=== PATIENT | female | born 2000 | race Caucasian/White ===

== ENCOUNTER 2021-06-20 21:43 | Emergency (ER) | payer OTHER, SELFPAY ==
--- NOTE | ~2021-06-20 | CT_ITS ---
EXAMINATION: CT ABDOMEN AND PELVIS WITHOUT CONTRAST CLINICAL INFORMATION: Abdominal pain and vomiting COMPARISON: None TECHNIQUE: Multidetector volumetric imaging was performed from the superior aspect of the liver through the pubic symphysis. Sagittal and coronal reformatted images were obtained on the technologist's workstation. This CT examination was performed using dose optimization techniques as appropriate, variously including the following: *Automated exposure control *Adjustment of mA and/or kV according to patient size (this includes techniques or standardized protocols for targeted exams where dose is matched to indication/reason for exam; i.e. extremities or head) *Use of iterative reconstruction technique DLP: 617 mGy-cm FINDINGS: LUNG BASES: The visualized lung bases are unremarkable. LIVER, GALLBLADDER, AND BILIARY TREE: The liver is normal in size and shape with decreased attenuation. No focal hepatic lesion or biliary ductal dilatation is present. The gallbladder is unremarkable with no evidence of radiopaque gallstones, gallbladder wall thickening, or obvious pericholecystic inflammatory changes. PANCREAS: Unremarkable. SPLEEN: Unremarkable. ADRENAL GLANDS: Unremarkable. KIDNEYS AND URETERS: The kidneys are normal in size, shape, and attenuation. No hydronephrosis, hydroureter, or calculi seen. No perinephric stranding. BLADDER: Unremarkable. GASTROINTESTINAL TRACT: The stomach is decompressed. Normal caliber small bowel. No obstruction. Normal appendix. No colonic wall thickening or inflammatory change. Fecalization of the distal ileum noted suggesting slow transit. No free air or free fluid. ABDOMINAL WALL: No significant hernia is appreciated. LYMPH NODES: Normal. VASCULAR: Normal caliber aorta. Retroaortic left renal vein. PELVIC VISCERA: The uterus and adnexa are unremarkable. OSSEOUS STRUCTURES: No acute or suspicious osseous abnormality. CT/CT abdomen pelvis wo con IMPRESSION: No acute finding in the abdomen or pelvis. No inflammatory changes. No obstruction. Hepatic steatosis.
[2021-06-20 21:46] VITALS: BP 127/79; PULSE 109; RESP 18; TEMP 36.6; O2SAT 98; BMI 35.9
--- NOTE | 2021-06-20 22:28 | ED.ABDPAIN ---
HPI - Abdominal Pain General Chief Complaint: Abdominal Pain Stated Complaint: Abd pain Time Seen by Provider: 06/20/21 22:20 Source: patient Mode of arrival: ambulatory Limitations: no limitations History of Present Illness HPI narrative: 19-year-old female with a history of scoliosis presents to the ER with 3 days of left-sided abdominal pain in addition to increased back pain. She reports her back pain has been present for several years although in the last few weeks she noticed that her entire back is more sore than usual. She has a posterior headache and upper back tenseness with increased stress at home. She reports her lower back is also hurting and she thinks is due to her worsening scoliosis. She denies any new trauma. She has no urinary symptoms. She also reports constant abdominal pain that is mostly on the left side but is described as dull, generalized and worsening over the last 3 days. She vomited once this morning. She has had no fever or diarrhea. No constipation. Her diet has been poor. No pelvic pain or vaginal discharge. Denies chance of . MD elicited complaint: abdominal pain Pertinent past history: none Onset (ago): day(s) (3) Pain Consistency: constant Location: diffuse and LUQ Severity: moderate Pain scale (0-10): 6 Quality: aching and dull Radiation: none Migration to: no migration Exacerbating factors: nothing Relieving factors: nothing Associated symptoms: vomiting (X1) Related Data Patient : No Previous Rx's Medication Instructions Recorded cyclobenzaprine 5 mg tablet 5 mg PO TID PRN #10 tab 06/21/21 Allergies Allergy/AdvReac Type Severity Reaction Status Date / Time aspirin [ASA] Allergy Mild RASH Unverified 04/24/20 19:03 Penicillins [PENICILLINS] Allergy Unknown RASH Unverified 04/24/20 19:03 Review of Systems Review of Systems Constitutional: No Fever, No Chills ENT/Mouth: No sore throat, No Rhinorrhea, No Swallowing Difficulty Cardiovascular: No Chest Pain, No SOB Respiratory: No Cough, No Sputum, No Wheezing, No dyspnea Gastrointestinal: No Nausea, + Vomiting, No Diarrhea, + abdominal Pain Genitourinary: No Dysuria, No Urinary Frequency, No Hematuria Musculoskeletal: + joint pain, + Myalgias Skin: No Skin Lesions, No rash Neuro: No Weakness, No Numbness, No Dizziness, + Headache Psych: + Anxiety/Panic, No Depression Heme/Lymph: No Bruising, No Lymphadenopathy Physical Exam Vital Signs: Vital Signs: Last Vital Signs Temp 98 F 06/20/21 21:46 Pulse 109 H 06/20/21 21:46 Resp 18 06/20/21 21:46 BP 127/79 06/20/21 21:46 Pulse Ox 98 06/20/21 21:46 Body Mass Index 35.9 Appearance: Alert. Oriented X3. No acute distress. Lying on the stretcher comfortably. Eyes: Pupils equal, round and reactive to light. ENT: Pharynx normal. Neck: Normal inspection. Neck supple. CVS: Normal heart rate and rhythm. Pulses normal. Respiratory: No respiratory distress. Breath sounds normal. Abdomen: Soft with mild left upper quadrant and left lower quadrant tenderness, no rebound or guarding. No CVA tenderness. Normal +BS x4 Back: No significant scoliosis appreciated. Soft tissue tenderness of the paravertebral spinal muscles with palpable spasm. Upper trapezius also in spasm with tenderness Skin: Skin warm and dry. Normal skin color. Normal skin turgor. No rashes. Extremities: No lower extremity edema. Neuro: Oriented X 3. No motor deficit. No sensory deficit. Course Course Course Narrative: 20-year-old female with a history of scoliosis presenting to the ER with 3 days of worsening left-sided and diffuse abdominal pain with 1 episode of vomiting this morning along with diffuse back pains. Back pain has been going on for years but acutely worse in the last few days. No fever or chills. She is nontoxic appearing with normal vital signs. Will plan to start with basic lab workup in urinalysis, urine . Will reassess Reevaluation(s) Reevaluation #1: Lab workup showing mildly elevated ALT of 39 with alkaline phosphatase of 138. Bilirubins are normal. Beta hCG is negative. CBC is unremarkable. Will proceed with CT scan of the abdomen for further evaluation give her ongoing symptoms. Reevaluation #2: CT scan is unremarkable. UA is negative for infection. At this time etiology of her abdominal pain is unclear. She appears in no distress and is tolerating p.o.. She is stable for discharge home with plan to follow up with her primary care doctor. As for her back pain with the acute worsening and spasm on exam will plan to start a short trial of low-dose muscle relaxer to see if this will help. Also advised take Tylenol and Motrin. She will follow-up with her doctor for further evaluation and management. Stable for DC home. MDM - Abdominal Pain Lab Data Result diagrams: 06/20/21 22:31 06/20/21 22:31 Labs: Lab Results 06/20/21 06/20/21 06/21/21 Range/Units 22:31 22:31 00:32 WBC 10.5 (4.8-10.8) X10*3/uL RBC 4.64 (4.20-5.50) X10*6/uL Hgb 12.2 (12.0-16.0) g/dl Hct 38.7 (37.0-47.0) % MCV 83.4 (80.0-98.0) fL MCH 26.3 L (27.0-33.0) pg MCHC 31.5 (31.0-35.0) g/dl RDW 14.5 (11.0-16.0) % Plt Count 432 H (160-400) X10*3/uL MPV 9.3 L (9.4-12.3) fL Immature Gran % (Auto) 0.3 (0.0-0.4) % Neut % (Auto) 61.9 (45-73) % Lymph % (Auto) 23.8 (20-40) % [place] % (Auto) 10.5 (2-11) % Eos % (Auto) 3.0 (0-4) % Baso % (Auto) 0.5 (0-2) % Lymph # (Auto) 2.5 (1.2-4.9) X10*3/uL [place] # (Auto) 1.1 (0.1-1.2) X10*3/uL Eos # (Auto) 0.3 (0.0-0.4) X10*3/uL Baso # (Auto) 0.1 (0.0-0.2) X10*3/uL Abs Immat Gran (auto) 0.03 (0.00-0.03) X10*3/uL Absolute Neuts (auto) 6.5 (2.0-8.3) x10*3/uL Absolute Nucleated RBC 0.000 (0.0-0.012) X10*3/uL Nucleated RBC % (auto) 0.0 (0.0-0.2) /100WBC Sodium 141 (135-145) mmol/L Potassium 4.5 (3.3-5.1) mmol/L Chloride 104 (96-108) mmol/L Carbon Dioxide 30 H (22-29) mmol/L Anion Gap 12 (12-20) BUN 14 (9-16) mg/dL Creatinine 0.76 (0.5-1.4) mg/dL Estim Creat Clear Calc 116.7 Estimated GFR > 60 Random Glucose 97 (60-115) mg/dL Calcium 9.1 (8.4-10.2) mg/dL Magnesium 2.1 (1.6-2.6) mg/dL Total Bilirubin 0.2 (0.0-1.0) mg/dL Direct Bilirubin < 0.2 (0.0-0.5) mg/dL AST 25 (5-31) U/L ALT 39 H (0-31) U/L Alkaline Phosphatase 138 H (39-117) U/L Total Protein 7.1 (6.5-8.0) g/dL Albumin 4.2 (3.5-5.0) g/dL Lipase 22 (8-78) U/L Beta HCG, Quant < 2 mIU/mL Urine Color YELLOW Urine Appearance CLEAR Urine pH 7.5 (5.0-8.0) Ur Specific [place] 1.020 (1.005-1.025) Urine Protein NEG (NEG-TRACE) MG/DL Urine Glucose (UA) NEG (NEG) MG/DL Urine Ketones NEG (NEG) MG/DL Urine Blood NEG (NEG) Urine Nitrite NEG (NEG) Ur Leukocyte Esterase NEG (NEG) Urine Test (NEGATIVE) 06/21/21 Range/Units 00:32 WBC (4.8-10.8) X10*3/uL RBC (4.20-5.50) X10*6/uL Hgb (12.0-16.0) g/dl Hct (37.0-47.0) % MCV (80.0-98.0) fL MCH (27.0-33.0) pg MCHC (31.0-35.0) g/dl RDW (11.0-16.0) % Plt Count (160-400) X10*3/uL MPV (9.4-12.3) fL Immature Gran % (Auto) (0.0-0.4) % Neut % (Auto) (45-73) % Lymph % (Auto) (20-40) % [place] % (Auto) (2-11) % Eos % (Auto) (0-4) % Baso % (Auto) (0-2) % Lymph # (Auto) (1.2-4.9) X10*3/uL [place] # (Auto) (0.1-1.2) X10*3/uL Eos # (Auto) (0.0-0.4) X10*3/uL Baso # (Auto) (0.0-0.2) X10*3/uL Abs Immat Gran (auto) (0.00-0.03) X10*3/uL Absolute Neuts (auto) (2.0-8.3) x10*3/uL Absolute Nucleated RBC (0.0-0.012) X10*3/uL Nucleated RBC % (auto) (0.0-0.2) /100WBC Sodium (135-145) mmol/L Potassium (3.3-5.1) mmol/L Chloride (96-108) mmol/L Carbon Dioxide (22-29) mmol/L Anion Gap (12-20) BUN (9-16) mg/dL Creatinine (0.5-1.4) mg/dL Estim Creat Clear Calc Estimated GFR Random Glucose (60-115) mg/dL Calcium (8.4-10.2) mg/dL Magnesium (1.6-2.6) mg/dL Total Bilirubin (0.0-1.0) mg/dL Direct Bilirubin (0.0-0.5) mg/dL AST (5-31) U/L ALT (0-31) U/L Alkaline Phosphatase (39-117) U/L Total Protein (6.5-8.0) g/dL Albumin (3.5-5.0) g/dL Lipase (8-78) U/L Beta HCG, Quant mIU/mL Urine Color Urine Appearance Urine pH (5.0-8.0) Ur Specific [place] (1.005-1.025) Urine Protein (NEG-TRACE) MG/DL Urine Glucose (UA) (NEG) MG/DL Urine Ketones (NEG) MG/DL Urine Blood (NEG) Urine Nitrite (NEG) Ur Leukocyte Esterase (NEG) Urine Test NEGATIVE (NEGATIVE) Critical Care Time Critical Care Time Critical Care Time: No Discharge Plan Discharge Clinical Impression: Abdominal pain Qualifiers: Abdominal location: generalized Qualified Code(s): R10.84 - Generalized abdominal pain Back pain Qualifiers: Back pain location: low back pain Chronicity: unspecified Back pain laterality: bilateral Sciatica presence: without sciatica Qualified Code(s): M54.50 - Low back pain, unspecified Patient Disposition: Home, Self-Care Instructions: Abdominal Pain (ED), Back Pain (ED) Additional Instructions: Your workup today was unremarkable. Your CT scan did not show any acute findings. Your urine test was normal. Recommend a bland diet while urine not feeling well and having abdominal pain. Your back pain is most likely due to muscle strain and spasm. No bending, lifting or twisting. Use ice several times per day for 20 minutes at a time for the next 48 hours and then change to heat. Take medication as prescribed to help with pain and discomfort. Follow up with your Primary Care Doctor this week. If you develop new or worsening symptoms call 911 or come back to the ER for further evaluation. Prescriptions: New cyclobenzaprine 5 mg tablet 5 mg PO TID PRN (Reason: muscle spasm) Qty: 10 RF: 0 PMFSH Social History Social History Advance Directives: No Advance Directives Information Provided: No Patient : No
[2021-06-20 22:35] LABS: MANUAL DIFF FLAG NO
[2021-06-20 22:36] LABS: Basophils Absolute Auto 0.1 X10*3/uL (0.0-0.2); Basophils Percent Auto 0.5 % (0-2); Eosinophils Absolute Auto 0.3 X10*3/uL (0.0-0.4); Hematocrit 38.7 % (37.0-47.0); Hemoglobin 12.2 g/dl (12.0-16.0); Imm Gran Abs Auto 0.03 X10*3/uL (0.00-0.03); Imm Gran Pct Auto 0.3 % (0.0-0.4); Lymphocytes Absolute Auto 2.5 X10*3/uL (1.2-4.9); Lymphocytes Percent Auto 23.8 % (20-40); Mean Corpuscular HGB Conc 31.5 g/dl (31.0-35.0); Mean Corpuscular Hemoglobin 26.3 pg (27.0-33.0); Mean Corpuscular Volume 83.4 fL (80.0-98.0); Mean Platelet Volume 9.3 fL (9.4-12.3); Monocytes Absolute Auto 1.1 X10*3/uL (0.1-1.2); Monocytes Percent Auto 10.5 % (2-11); Neutrophils Absolute Auto 6.5 x10*3/uL (2.0-8.3); Neutrophils Percent Auto 61.9 % (45-73); Platelet Count 432 X10*3/uL (160-400); Red Blood Count 4.64 X10*6/uL (4.20-5.50); Red Cell Distribution Width 14.5 % (11.0-16.0); White Blood Count 10.5 X10*3/uL (4.8-10.8)
[2021-06-20 23:00] LABS: Alanine Aminotransferase 39 U/L (0-31); Albumin Level 4.2 g/dL (3.5-5.0); Alkaline Phosphatase 138 U/L (39-117); Anion Gap 12 (12-20); Aspartate Amino Transferase 25 U/L (5-31); Bilirubin Direct < 0.2 mg/dL (0.0-0.5); Bilirubin Total 0.2 mg/dL (0.0-1.0); Blood Urea Nitrogen 14 mg/dL (9-16); Calcium 9.1 mg/dL (8.4-10.2); Carbon Dioxide 30 mmol/L (22-29); Chloride 104 mmol/L (96-108); Creatinine Clr Calc Pharmacy 116.7; Estimated Glomerular Filt Rate > 60; Glucose Random 97 mg/dL (60-115); Lipase 22 U/L (8-78); Magnesium 2.1 mg/dL (1.6-2.6); Potassium 4.5 mmol/L (3.3-5.1); Sodium 141 mmol/L (135-145); Total Protein 7.1 g/dL (6.5-8.0)
[2021-06-20 23:48] LABS: HCG Quantitative < 2 mIU/mL
[2021-06-21 00:41] LABS: Appearance Urine CLEAR; Color Urine YELLOW; Glucose Urine UA NEG (NEG); Leukocyte Esterase Urine NEG (NEG); Nitrite Urine NEG (NEG); PH 7.5 (5.0-8.0); Urine Blood NEG (NEG); Urine Ketones NEG (NEG); Urine Protein NEG (NEG-TRACE)
[2021-06-21 00:46] LABS: UPreg QC Valid YES; Urine Pregnancy NEGATIVE (NEGATIVE)
== END 2021-06-21 01:12 | disposition home or self-care (01) ==
PROVIDERS: Physician Assistant; Emergency Provider Internal Medicine
DX: R10.12 Left upper quadrant pain (principal); M54.50 Low back pain, unspecified; Z79.899 Other long term (current) drug therapy
CPT/HCPCS: 36415; 74176; 80048; 80076; 81003; 81025; 83690; 83735; 84702; 85025; 99283; 99284

== ENCOUNTER 2021-09-26 18:13 | Emergency (ER) | payer MEDICAID, SELFPAY ==
--- NOTE | ~2021-09-26 | CT_ITS ---
EXAMINATION: CT abdomen pelvis w con CLINICAL INFORMATION: Reason for Exam Left sided AP COMPARISON: Prior CT June 2021 TECHNIQUE: Multidetector volumetric imaging was performed from the superior aspect of the liver through the pubic symphysis 85 mL Omnipaque 350 injected Sagittal and coronal reformatted images were obtained on the technologist's workstation. This CT examination was performed using dose optimization techniques as appropriate, variously including the following: *Automated exposure control *Adjustment of mA and/or kV according to patient size (this includes techniques or standardized protocols for targeted exams where dose is matched to indication/reason for exam; i.e. extremities or head) *Use of iterative reconstruction technique DLP: 911 mGy-cm FINDINGS: LOWER THORAX: Included lung bases are clear. HEPATOBILIARY: Diffusely hypodense liver suggesting hepatic steatosis. No focal hepatic lesions. No biliary ductal dilatation. GALLBLADDER: Gallbladder unremarkable. SPLEEN: Spleen is normal in size. PANCREAS: No focal mass or ductal dilatation. STOMACH AND GASTROINTESTINAL TRACT: Stomach is grossly unremarkable. There is no bowel distention or thickening. No CT evidence of appendicitis. ADRENALS: No adrenal nodules. KIDNEYS/URETERS: No hydronephrosis, stones or solid mass lesions. URINARY BLADDER: Partially decompressed. PELVIC VISCERA: Unremarkable PERITONEUM: No free air or fluid. LYMPH NODES: No lymphadenopathy. VASCULAR:Abdominal aorta normal in size, no aneurysm found. BONES, ABDOMINAL WALL AND SOFT TISSUES: Age-appropriate changes of the spine and skeletal system, no destructive osteolytic or osteosclerotic bone lesion found CT/CT abdomen pelvis w con IMPRESSION: *No CT explanation for patient's pain symptoms. No evidence of diverticulitis. No evidence of bowel obstruction. No kidney stone or hydronephrosis. *Normal appendix identified. Mildly hypodense liver suggesting hepatic steatosis.
[2021-09-26 18:28] VITALS: BP 131/83; PULSE 94; RESP 16; TEMP 36.1; O2SAT 100; BMI 35.9
--- NOTE | 2021-09-26 18:49 | ED.ABDPAIN ---
HPI - Abdominal Pain General Chief Complaint: Abdominal Pain Stated Complaint: abdominal pain, back pain Time Seen by Provider: 09/26/21 18:41 Source: patient Mode of arrival: ambulatory Limitations: no limitations History of Present Illness HPI narrative: 20-year-old female previously healthy here with reports of left-sided abdominal pain which began yesterday after drinking some water. No associated nausea, vomiting, diarrhea, urinary symptoms, fevers or chills. Related Data Previous Rx's Medication Instructions Recorded cyclobenzaprine 5 mg tablet 5 mg PO TID PRN #10 tab 06/21/21 omeprazole 40 mg capsule,delayed 40 mg PO DAILY #30 cap 09/26/21 release Allergies Allergy/AdvReac Type Severity Reaction Status Date / Time aspirin [ASA] Allergy Mild RASH Verified 09/26/21 20:56 Penicillins [PENICILLINS] Allergy Unknown RASH Verified 09/26/21 20:56 Review of Systems Review of Systems Yes all other systems are reviewed and are negative Constitutional: Reports no additional constitutional complaints, Denies body ache(s), Denies chills, Denies fever(s), Denies headache(s) and Denies weakness Eyes: Reports no additional eye complaints and Denies change in vision Reports system reviewed and no additional complaints, except as documented, Denies dizziness, Denies headache(s), Denies nasal congestion, Denies nasal discharge and Denies neck pain Cardiovascular: Reports no additional cardiovascular complaints, Denies chest pain, Denies leg edema and Denies dyspnea Respiratory: Reports no additional respiratory complaints, Denies cough and Denies dyspnea Gastrointestinal: Reports no additional gastrointestinal complaints, Reports abdominal pain, Denies diarrhea, Denies nausea and Denies vomiting Genitourinary: Reports no additional female genitourinary complaints and Denies urinary incontinence Musculoskeletal: Reports no additional musculoskeletal complaints, Denies back pain, Denies arthralgias, Denies joint swelling, Denies neck pain, Denies numbness and Denies tingling Skin/Breast: Reports system reviewed and no additional complaints, except as docu and Denies rash Reports system reviewed and no additional complaints, except as documented, Denies dizziness, Denies headache(s), Denies numbness, Denies tingling and Denies weakness PMF Past Medical History Attestation statement: The following information was validated with the patient. Source: old records reviewed and nursing notes reviewed Social History Social History Patient Tobacco Use Status: Never used Tobacco Use of substances other than those prescribed or required for medical reasons: Yes Substance Use Type: Marijuana Advance Directives: No Patient : No Physical Exam ED Vital Signs: Vital Signs - 24 hr 09/26/21 18:28 09/26/21 19:03 Temperature 97.0 F 98.8 F Pulse Rate 94 89 Respiratory Rate 16 16 Blood Pressure 131/83 122/76 Pulse Oximetry 100 99 BMI result Body Mass Index 35.9 Const General: cooperative, healthy appearing, comfortable and no acute distress Orientation/consciousness: patient oriented x3 Limitations: no limitations HENMT Head: Yes normal to inspection Ears: hearing grossly normal bilaterally and TM's normal bilaterally General nose exam: Normal external nose present Face and sinus: Yes normal facial exam Mouth: Normal oral and palatal mucosa present Throat: Yes posterior oropharynx normal, Yes tonsils normal and Yes uvula midline Eyes General: appearance normal, both eyes and all related structures Pupils: Equal, round and reactive pupils present Neck Neck: Yes normal visual inspection, Yes full ROM, Yes no lymphadenopathy and Yes no meningeal signs Chest Chest palpation & inspection: normal inspection of the chest Resp Effort & Inspection: normal respiratory effort Auscultation: clear to auscultation bilaterally Cardio Rate: regular rate Peripheral pulses: Peripheral pulses 2+ throughout GI Inspection: Yes normal to inspection Palpation (GI): Soft to palpation and Tenderness to palpation present (GI) (Left upper quadrant-no rebound or guarding ) Auscultation: normal bowel sounds General: Yes no CVA tenderness Back/Spine/Pelvis Back: no CVA tenderness Skin General skin exam: no rashes or lesions noted Neuro General: patient oriented x3 and no meningeal signs Cranial nerves: Yes CN's II-XII intact bilaterally, Yes Equal, round and reactive pupils present, Yes Bilaterally intact EOM present, Yes Nystagmus not present, Yes Normal facial strength present and Yes Midline tongue present Cognition (Neuro): normal cognition Gait exam (Neuro): Normal gait present Motor exam (neuro): 5/5 motor strength present throughout Course Course Course Narrative: 20-year-old female here with reports of left upper quadrant abdominal pain since yesterday. On exam has tenderness over the left upper abdomen. No rebound or guarding. Will check labs, UA, CT A/P. 2100-labs unremarkable. UA is negative. CT abdomen pelvis shows no acute finding. Patient reports improvement after PPI and GI cocktail. ?gastritis vs reflux vs GERD. Patient tolerating p.o.. Will recommend patient follow-up with GI outpatient. Will initiate PPI. Reviewed worrisome signs and symptoms of when to return to the emergency department. Comfortable discharge. MDM - Abdominal Pain Medical Records Attestation: I reviewed the patient's medical records. Lab Data Attestation: I reviewed the patient's lab results. Result diagrams: 09/26/21 19:09 09/26/21 19:09 Labs: Lab Results 09/26/21 09/26/21 09/26/21 Range/Units 19:09 19:09 19:09 WBC 11.7 H (4.8-10.8) X10*3/uL RBC 4.63 (4.20-5.50) X10*6/uL Hgb 12.2 (12.0-16.0) g/dl Hct 38.7 (37.0-47.0) % MCV 83.6 (80.0-98.0) fL MCH 26.3 L (27.0-33.0) pg MCHC 31.5 (31.0-35.0) g/dl RDW 14.6 (11.0-16.0) % Plt Count 412 H (160-400) X10*3/uL MPV 9.3 L (9.4-12.3) fL Immature Gran % (Auto) 0.3 (0.0-0.4) % Neut % (Auto) 64.1 (45-73) % Lymph % (Auto) 22.3 (20-40) % [place] % (Auto) 9.9 (2-11) % Eos % (Auto) 2.9 (0-4) % Baso % (Auto) 0.5 (0-2) % Lymph # (Auto) 2.6 (1.2-4.9) X10*3/uL [place] # (Auto) 1.2 (0.1-1.2) X10*3/uL Eos # (Auto) 0.3 (0.0-0.4) X10*3/uL Baso # (Auto) 0.1 (0.0-0.2) X10*3/uL Abs Immat Gran (auto) 0.04 H (0.00-0.03) X10*3/uL Absolute Neuts (auto) 7.5 (2.0-8.3) x10*3/uL Absolute Nucleated RBC 0.000 (0.0-0.012) X10*3/uL Nucleated RBC % (auto) 0.0 (0.0-0.2) /100WBC Sodium 139 (135-145) mmol/L Potassium 4.5 (3.3-5.1) mmol/L Chloride 105 (96-108) mmol/L Carbon Dioxide 28 (22-29) mmol/L Anion Gap 11 L (12-20) BUN 11 (9-16) mg/dL Creatinine 0.72 (0.5-1.4) mg/dL Estim Creat Clear Calc 123.2 Estimated GFR > 60 Random Glucose 98 (60-115) mg/dL Calcium 9.5 (8.4-10.2) mg/dL Total Bilirubin 0.2 (0.0-1.0) mg/dL Direct Bilirubin < 0.2 (0.0-0.5) mg/dL AST 17 (5-31) U/L ALT 23 (0-31) U/L Alkaline Phosphatase 142 H (39-117) U/L Total Protein 7.0 (6.5-8.0) g/dL Albumin 4.0 (3.5-5.0) g/dL Lipase 25 (8-78) U/L Urine Color YELLOW Urine Appearance CLEAR Urine pH 6.0 (5.0-8.0) Ur Specific [place] 1.010 (1.005-1.025) Urine Protein NEG (NEG-TRACE) MG/DL Urine Glucose (UA) NEG (NEG) MG/DL Urine Ketones NEG (NEG) MG/DL Urine Blood NEG (NEG) Urine Nitrite NEG (NEG) Ur Leukocyte Esterase NEG (NEG) Urine Test (NEGATIVE) 09/26/21 Range/Units 19:09 WBC (4.8-10.8) X10*3/uL RBC (4.20-5.50) X10*6/uL Hgb (12.0-16.0) g/dl Hct (37.0-47.0) % MCV (80.0-98.0) fL MCH (27.0-33.0) pg MCHC (31.0-35.0) g/dl RDW (11.0-16.0) % Plt Count (160-400) X10*3/uL MPV (9.4-12.3) fL Immature Gran % (Auto) (0.0-0.4) % Neut % (Auto) (45-73) % Lymph % (Auto) (20-40) % [place] % (Auto) (2-11) % Eos % (Auto) (0-4) % Baso % (Auto) (0-2) % Lymph # (Auto) (1.2-4.9) X10*3/uL [place] # (Auto) (0.1-1.2) X10*3/uL Eos # (Auto) (0.0-0.4) X10*3/uL Baso # (Auto) (0.0-0.2) X10*3/uL Abs Immat Gran (auto) (0.00-0.03) X10*3/uL Absolute Neuts (auto) (2.0-8.3) x10*3/uL Absolute Nucleated RBC (0.0-0.012) X10*3/uL Nucleated RBC % (auto) (0.0-0.2) /100WBC Sodium (135-145) mmol/L Potassium (3.3-5.1) mmol/L Chloride (96-108) mmol/L Carbon Dioxide (22-29) mmol/L Anion Gap (12-20) BUN (9-16) mg/dL Creatinine (0.5-1.4) mg/dL Estim Creat Clear Calc Estimated GFR Random Glucose (60-115) mg/dL Calcium (8.4-10.2) mg/dL Total Bilirubin (0.0-1.0) mg/dL Direct Bilirubin (0.0-0.5) mg/dL AST (5-31) U/L ALT (0-31) U/L Alkaline Phosphatase (39-117) U/L Total Protein (6.5-8.0) g/dL Albumin (3.5-5.0) g/dL Lipase (8-78) U/L Urine Color Urine Appearance Urine pH (5.0-8.0) Ur Specific [place] (1.005-1.025) Urine Protein (NEG-TRACE) MG/DL Urine Glucose (UA) (NEG) MG/DL Urine Ketones (NEG) MG/DL Urine Blood (NEG) Urine Nitrite (NEG) Ur Leukocyte Esterase (NEG) Urine Test NEGATIVE (NEGATIVE) Imaging Data CT scan - abdomen: Attestation: I personally reviewed and interpreted this imaging study as follows: Radiologist's impression: [address] [address] [address] Scan Report Signed Patient: Lucina Isabel MR#: [id number] : 2000 Acct:[id number] Age/Sex: 20 / F ADM Date: 09/26/21 Loc: HO.ED Attending Dr: Ordering Physician: Naatlee Alcantar NP Date of Service: 09/26/21 Procedure(s): CT abdomen pelvis w con Accession Number(s): [id number] cc: Natalee Alcantar NP~ EXAMINATION: CT abdomen pelvis w con CLINICAL INFORMATION: Reason for Exam Left sided AP COMPARISON: Prior CT June 2021 TECHNIQUE: Multidetector volumetric imaging was performed from the superior aspect of the liver through the pubic symphysis 85 mL Omnipaque 350 injected Sagittal and coronal reformatted images were obtained on the technologist's workstation. ? This CT examination was performed using dose optimization techniques as appropriate, variously including the following: *Automated exposure control *Adjustment of mA and/or kV according to patient size (this includes techniques or standardized protocols for targeted exams where dose is matched to indication/reason for exam; i.e. extremities or head) *Use of iterative reconstruction technique DLP: 911 mGy-cm FINDINGS: LOWER THORAX: Included lung bases are clear. HEPATOBILIARY: Diffusely hypodense liver suggesting hepatic steatosis. No focal hepatic lesions. No biliary ductal dilatation.? GALLBLADDER: Gallbladder unremarkable. SPLEEN: Spleen is normal in size. PANCREAS: No focal mass or ductal dilatation. STOMACH AND GASTROINTESTINAL TRACT: Stomach is grossly unremarkable. There is no bowel distention or thickening. No CT evidence of appendicitis. ADRENALS: No adrenal nodules. KIDNEYS/URETERS: No hydronephrosis, stones or solid mass lesions. URINARY BLADDER: Partially decompressed. PELVIC VISCERA: Unremarkable PERITONEUM: No free air or fluid. LYMPH NODES: No lymphadenopathy. VASCULAR:Abdominal aorta normal in size, no aneurysm found. BONES, ABDOMINAL WALL AND SOFT TISSUES: Age-appropriate changes of the spine and skeletal system, no destructive osteolytic or osteosclerotic bone lesion found CT/CT abdomen pelvis w con IMPRESSION: *No CT explanation for patient's pain symptoms. No evidence of diverticulitis. No evidence of bowel obstruction. No kidney stone or hydronephrosis. ? *Normal appendix identified. ? Mildly hypodense liver suggesting hepatic steatosis. Discharge Plan Discharge Clinical Impression: Abdominal pain Patient Disposition: Home, Self-Care Instructions: Abdominal Pain (ED) Additional Instructions: Follow a bland diet for the next several days Follow-up with Gastroenterology Prescriptions: New omeprazole 40 mg capsule,delayed release(DR/EC) 40 mg PO DAILY Qty: 30 0RF No Action cyclobenzaprine 5 mg tablet 5 mg PO TID PRN (Reason: muscle spasm) Qty: 10 0RF Referrals: Brandon Escalante MD [Physician] - 1 week
[2021-09-26 19:03] VITALS: BP 122/76; PULSE 89; RESP 16; TEMP 37.1; O2SAT 99
[2021-09-26 19:14] LABS: MANUAL DIFF FLAG NO
[2021-09-26 19:17] LABS: Basophils Absolute Auto 0.1 X10*3/uL (0.0-0.2); Basophils Percent Auto 0.5 % (0-2); Eosinophils Absolute Auto 0.3 X10*3/uL (0.0-0.4); Eosinophils Percent Auto 2.9 % (0-4); Hematocrit 38.7 % (37.0-47.0); Hemoglobin 12.2 g/dl (12.0-16.0); Imm Gran Abs Auto 0.04 X10*3/uL (0.00-0.03); Imm Gran Pct Auto 0.3 % (0.0-0.4); Lymphocytes Absolute Auto 2.6 X10*3/uL (1.2-4.9); Lymphocytes Percent Auto 22.3 % (20-40); Mean Corpuscular HGB Conc 31.5 g/dl (31.0-35.0); Mean Corpuscular Hemoglobin 26.3 pg (27.0-33.0); Mean Corpuscular Volume 83.6 fL (80.0-98.0); Mean Platelet Volume 9.3 fL (9.4-12.3); Monocytes Absolute Auto 1.2 X10*3/uL (0.1-1.2); Monocytes Percent Auto 9.9 % (2-11); Neutrophils Absolute Auto 7.5 x10*3/uL (2.0-8.3); Neutrophils Percent Auto 64.1 % (45-73); Platelet Count 412 X10*3/uL (160-400); Red Blood Count 4.63 X10*6/uL (4.20-5.50); Red Cell Distribution Width 14.6 % (11.0-16.0); White Blood Count 11.7 X10*3/uL (4.8-10.8)
[2021-09-26 19:18] LABS: Appearance Urine CLEAR; Color Urine YELLOW; Glucose Urine UA NEG (NEG); Leukocyte Esterase Urine NEG (NEG); Nitrite Urine NEG (NEG); Urine Blood NEG (NEG); Urine Ketones NEG (NEG); Urine Protein NEG (NEG-TRACE)
[2021-09-26 19:20] LABS: UPreg QC Valid YES; Urine Pregnancy NEGATIVE (NEGATIVE)
[2021-09-26 19:31] LABS: Alanine Aminotransferase 23 U/L (0-31); Alkaline Phosphatase 142 U/L (39-117); Anion Gap 11 (12-20); Aspartate Amino Transferase 17 U/L (5-31); Bilirubin Direct < 0.2 mg/dL (0.0-0.5); Bilirubin Total 0.2 mg/dL (0.0-1.0); Blood Urea Nitrogen 11 mg/dL (9-16); Calcium 9.5 mg/dL (8.4-10.2); Carbon Dioxide 28 mmol/L (22-29); Chloride 105 mmol/L (96-108); Creatinine Clr Calc Pharmacy 123.2; Estimated Glomerular Filt Rate > 60; Glucose Random 98 mg/dL (60-115); Lipase 25 U/L (8-78); Potassium 4.5 mmol/L (3.3-5.1); Sodium 139 mmol/L (135-145)
[2021-09-26] MEDS: Magnesium Hydrox/Alum Hydrox 30 ML ORAL.SUSP PO (19:37)
[2021-09-26] MEDS: Famotidine/PF 20 MG/2 ML VIAL IVPUSH (19:37)
[2021-09-26] MEDS: Lidocaine HCl Viscous 2 % 15 ML SOLUTION MUCOUS MEM (19:37)
[2021-09-26] MEDS: iohexoL 350 MG/ML 100 ML INFUS..BTL IV (19:49)
[2021-09-26] MEDS: Acetaminophen 325 MG TABLET 975 MG PO (21:05)
== END 2021-09-26 21:11 | disposition home or self-care (01) ==
PROVIDERS: Nurse Practitioner Family; Emergency Provider Internal Medicine
DX: R10.12 Left upper quadrant pain (principal); F12.90 Cannabis use, unspecified, uncomplicated
CPT/HCPCS: 36415; 74177; 80048; 80076; 81003; 81025; 83690; 85025; 96374; 99284; 99285; Q9967

== ENCOUNTER 2021-10-07 02:44 | Emergency (ER) | payer MEDICAID, SELFPAY ==
[2021-10-07 02:57] VITALS: BP 134/63; PULSE 125; RESP 18; TEMP 37; O2SAT 97; BMI 35.6
[2021-10-07 03:14] LABS: MANUAL DIFF FLAG NO
[2021-10-07 03:18] LABS: Basophils Percent Auto 0.3 % (0-2); Eosinophils Absolute Auto 0.1 X10*3/uL (0.0-0.4); Eosinophils Percent Auto 0.7 % (0-4); Hematocrit 41.4 % (37.0-47.0); Imm Gran Abs Auto 0.05 X10*3/uL (0.00-0.03); Imm Gran Pct Auto 0.3 % (0.0-0.4); Lymphocytes Absolute Auto 0.8 X10*3/uL (1.2-4.9); Lymphocytes Percent Auto 5.2 % (20-40); Mean Corpuscular HGB Conc 31.4 g/dl (31.0-35.0); Mean Corpuscular Hemoglobin 26.3 pg (27.0-33.0); Mean Corpuscular Volume 83.6 fL (80.0-98.0); Mean Platelet Volume 9.1 fL (9.4-12.3); Monocytes Absolute Auto 0.8 X10*3/uL (0.1-1.2); Monocytes Percent Auto 5.1 % (2-11); Neutrophils Absolute Auto 13.9 x10*3/uL (2.0-8.3); Neutrophils Percent Auto 88.4 % (45-73); Platelet Count 435 X10*3/uL (160-400); Red Blood Count 4.95 X10*6/uL (4.20-5.50); Red Cell Distribution Width 14.5 % (11.0-16.0); White Blood Count 15.7 X10*3/uL (4.8-10.8)
[2021-10-07 03:27] LABS: Appearance Urine TURBID; Color Urine YELLOW; Glucose Urine UA NEG (NEG); Leukocyte Esterase Urine TRACE (NEG); Nitrite Urine POS (NEG); PH 7.5 (5.0-8.0); Specific Gravity - Urine 1.025 (1.005-1.025); UACC Culture Trigger YES; Urine Blood 3+ (NEG); Urine Ketones NEG (NEG); Urine Protein 2+ MG/DL (NEG-TRACE)
[2021-10-07 03:29] LABS: UPreg QC Valid YES; Urine Pregnancy NEGATIVE (NEGATIVE)
[2021-10-07 03:33] LABS: Anion Gap 16 (12-20); Blood Urea Nitrogen 15 mg/dL (9-16); Calcium 9.4 mg/dL (8.4-10.2); Carbon Dioxide 26 mmol/L (22-29); Chloride 104 mmol/L (96-108); Estimated Glomerular Filt Rate > 60; Glucose Random 132 mg/dL (60-115); Potassium 4.6 mmol/L (3.3-5.1); Sodium 141 mmol/L (135-145)
[2021-10-07 03:41] LABS: Bacteria Urine 2+ /LPF; Mucus Urine 3+ /LPF; Renal Epithelial Cells Urine 2+ /LPF; Squamous Epithelial Cell Urine 3+ /LPF
--- NOTE | 2021-10-07 04:02 | ED_ITS ---
HPI - Abdominal Pain General Chief Complaint: Abdominal Pain Stated Complaint: stomach & back pain, vomiting Time Seen by Provider: 10/07/21 04:02 Source: patient Mode of arrival: ambulatory Limitations: no limitations History of Present Illness HPI narrative: Patient been having diffuse abdominal pain radiating to the left lower back with diarrhea and nausea and vomiting since yesterday multiple times no urinary complaint no fever no chills patient has not received the COVID vaccine Related Data Previous Rx's Medication Instructions Recorded cyclobenzaprine 5 mg tablet 5 mg PO TID PRN #10 tab 06/21/21 omeprazole 40 mg capsule,delayed 40 mg PO DAILY #30 cap 09/26/21 release ciprofloxacin HCl 500 mg tablet 500 mg PO BID #14 tab 10/07/21 (Cipro) ondansetron 4 mg disintegrating 4 mg PO Q6-8H PRN #7 tab 10/07/21 tablet Allergies Allergy/AdvReac Type Severity Reaction Status Date / Time aspirin [ASA] Allergy Mild RASH Verified 09/26/21 20:56 Penicillins [PENICILLINS] Allergy Unknown RASH Verified 09/26/21 20:56 Review of Systems Review of Systems Yes all other systems are reviewed and are negative [facility] Social History Social History Patient Tobacco Use Status: Never used Tobacco Substance Use Type: Marijuana Advance Directives: No Patient : No Physical Exam ED Vital Signs: Vital Signs - 24 hr 10/07/21 02:57 10/07/21 06:07 Temperature 98.6 F 98.1 F Pulse Rate 125 H 111 H Respiratory Rate 18 Blood Pressure 134/63 113/67 Pulse Oximetry 97 98 BMI result Body Mass Index 35.6 Appearance: Alert. Oriented X3. No acute distress. Eyes: No pallor/ icterus ENT: Pharynx normal. Oral Mucosa moist Neck: Normal inspection. Neck supple. CVS: Normal heart rate and rhythm. Pulses normal. Respiratory: No respiratory distress. Equal air entry bilateral, no wheezing/r ales/rhonchi Abdomen: Soft diffuse abdominal tenderness. Bowel sounds are present, no mass palpable, no CVA tenderness Skin: Skin warm and dry. Normal skin color. Normal skin turgor. Extremities: No lower extremity edema. No calf tenderness Neuro: Oriented X 3. MDM - Abdominal Pain MDM Narrative Medical decision making narrative: Patient with diarrhea nausea vomiting slight pressure when she urinates but no frequency or dysuria her son is also sick with same likely viral improved after IV fluids noticed to have slightly elevated WBC count was given 1 g of Rocephin discharged patient home on Ceftin and nausea medicine Lab Data Attestation: I reviewed the patient's lab results. Result diagrams: 10/07/21 03:10 10/07/21 03:10 Labs: Lab Results 10/07/21 10/07/21 10/07/21 Range/Units 03:10 03:10 03:18 WBC 15.7 H (4.8-10.8) X10*3/uL RBC 4.95 (4.20-5.50) X10*6/uL Hgb 13.0 (12.0-16.0) g/dl Hct 41.4 (37.0-47.0) % MCV 83.6 (80.0-98.0) fL MCH 26.3 L (27.0-33.0) pg MCHC 31.4 (31.0-35.0) g/dl RDW 14.5 (11.0-16.0) % Plt Count 435 H (160-400) X10*3/uL MPV 9.1 L (9.4-12.3) fL Immature Gran % (Auto) 0.3 (0.0-0.4) % Neut % (Auto) 88.4 H (45-73) % Lymph % (Auto) 5.2 L (20-40) % [place] % (Auto) 5.1 (2-11) % Eos % (Auto) 0.7 (0-4) % Baso % (Auto) 0.3 (0-2) % Lymph # (Auto) 0.8 L (1.2-4.9) X10*3/uL [place] # (Auto) 0.8 (0.1-1.2) X10*3/uL Eos # (Auto) 0.1 (0.0-0.4) X10*3/uL Baso # (Auto) 0.0 (0.0-0.2) X10*3/uL Abs Immat Gran (auto) 0.05 H (0.00-0.03) X10*3/uL Absolute Neuts (auto) 13.9 H (2.0-8.3) x10*3/uL Absolute Nucleated RBC 0.000 (0.0-0.012) X10*3/uL Nucleated RBC % (auto) 0.0 (0.0-0.2) /100WBC Sodium 141 (135-145) mmol/L Potassium 4.6 (3.3-5.1) mmol/L Chloride 104 (96-108) mmol/L Carbon Dioxide 26 (22-29) mmol/L Anion Gap 16 (12-20) BUN 15 (9-16) mg/dL Creatinine 0.79 (0.5-1.4) mg/dL Estim Creat Clear Calc 111.0 Estimated GFR > 60 Random Glucose 132 H (60-115) mg/dL Calcium 9.4 (8.4-10.2) mg/dL Total Bilirubin 0.5 (0.0-1.0) mg/dL Direct Bilirubin 0.2 (0.0-0.5) mg/dL AST 25 D (5-31) U/L ALT 40 H (0-31) U/L Alkaline Phosphatase 143 H (39-117) U/L Total Protein 7.5 (6.5-8.0) g/dL Albumin 4.3 (3.5-5.0) g/dL Lipase 15 (8-78) U/L Urine Color YELLOW Urine Appearance TURBID Urine pH 7.5 (5.0-8.0) Ur Specific [place] 1.025 (1.005-1.025) Urine Protein 2+ H (NEG-TRACE) MG/DL Urine Glucose (UA) NEG (NEG) MG/DL Urine Ketones NEG (NEG) MG/DL Urine Blood 3+ H (NEG) Urine Nitrite POS H (NEG) Ur Leukocyte Esterase TRACE H (NEG) Urine RBC 15-29 H (0) /HPF Urine WBC 5-9 H (0-4) /HPF Ur Squamous Epith Cells 3+ /LPF Ur Renal Epithelial Cell 2+ /LPF Urine Bacteria 2+ /LPF Urine Mucus 3+ /LPF Urine Test (NEGATIVE) 10/07/21 Range/Units 03:18 WBC (4.8-10.8) X10*3/uL RBC (4.20-5.50) X10*6/uL Hgb (12.0-16.0) g/dl Hct (37.0-47.0) % MCV (80.0-98.0) fL MCH (27.0-33.0) pg MCHC (31.0-35.0) g/dl RDW (11.0-16.0) % Plt Count (160-400) X10*3/uL MPV (9.4-12.3) fL Immature Gran % (Auto) (0.0-0.4) % Neut % (Auto) (45-73) % Lymph % (Auto) (20-40) % [place] % (Auto) (2-11) % Eos % (Auto) (0-4) % Baso % (Auto) (0-2) % Lymph # (Auto) (1.2-4.9) X10*3/uL [place] # (Auto) (0.1-1.2) X10*3/uL Eos # (Auto) (0.0-0.4) X10*3/uL Baso # (Auto) (0.0-0.2) X10*3/uL Abs Immat Gran (auto) (0.00-0.03) X10*3/uL Absolute Neuts (auto) (2.0-8.3) x10*3/uL Absolute Nucleated RBC (0.0-0.012) X10*3/uL Nucleated RBC % (auto) (0.0-0.2) /100WBC Sodium (135-145) mmol/L Potassium (3.3-5.1) mmol/L Chloride (96-108) mmol/L Carbon Dioxide (22-29) mmol/L Anion Gap (12-20) BUN (9-16) mg/dL Creatinine (0.5-1.4) mg/dL Estim Creat Clear Calc Estimated GFR Random Glucose (60-115) mg/dL Calcium (8.4-10.2) mg/dL Total Bilirubin (0.0-1.0) mg/dL Direct Bilirubin (0.0-0.5) mg/dL AST (5-31) U/L ALT (0-31) U/L Alkaline Phosphatase (39-117) U/L Total Protein (6.5-8.0) g/dL Albumin (3.5-5.0) g/dL Lipase (8-78) U/L Urine Color Urine Appearance Urine pH (5.0-8.0) Ur Specific [place] (1.005-1.025) Urine Protein (NEG-TRACE) MG/DL Urine Glucose (UA) (NEG) MG/DL Urine Ketones (NEG) MG/DL Urine Blood (NEG) Urine Nitrite (NEG) Ur Leukocyte Esterase (NEG) Urine RBC (0) /HPF Urine WBC (0-4) /HPF Ur Squamous Epith Cells /LPF Ur Renal Epithelial Cell /LPF Urine Bacteria /LPF Urine Mucus /LPF Urine Test NEGATIVE (NEGATIVE) Discharge Plan Discharge Clinical Impression: Gastroenteritis, UTI (urinary tract infection) Patient Disposition: Home, Self-Care Instructions: Urinary Tract Infection in Women (DC), Gastroenteritis (ED) Additional Instructions: Drink plenty of fluids Antibiotic has prescribed Nausea medication as advised Follow with PCP if not better Prescriptions: New ondansetron 4 mg tablet,disintegrating 4 mg PO Q6-8H PRN (Reason: nausea and vomiting) Qty: 7 0RF ciprofloxacin HCl [Cipro] 500 mg tablet 500 mg PO BID Qty: 14 0RF No Action omeprazole 40 mg capsule,delayed release(DR/EC) 40 mg PO DAILY Qty: 30 0RF cyclobenzaprine 5 mg tablet 5 mg PO TID PRN (Reason: muscle spasm) Qty: 10 0RF Interventions: ED Discharge Assessment Last Done: 10/07/21 06:36 Discharge Date/Time: 10/07/21 06:36
[2021-10-07 04:29] LABS: Alanine Aminotransferase 40 U/L (0-31); Albumin Level 4.3 g/dL (3.5-5.0); Alkaline Phosphatase 143 U/L (39-117); Aspartate Amino Transferase 25 U/L (5-31); Bilirubin Direct 0.2 mg/dL (0.0-0.5); Bilirubin Total 0.5 mg/dL (0.0-1.0); Lipase 15 U/L (8-78); Total Protein 7.5 g/dL (6.5-8.0)
[2021-10-07] MEDS: ondansetron HCL 4 MG/2 ML VIAL IVPUSH ×2 (04:29→06:02)
[2021-10-07] MEDS: Loperamide HCl 2 MG CAPSULE 4 MG PO (04:29)
[2021-10-07] MEDS: 0.9 % Sodium Chloride 1,000 ML 999 ML IV (04:30)
--- NOTE | 2021-10-07 04:42 | PC.NURSE ---
Iv placed, medicated per mar. Pt is resting at this time.
[2021-10-07] MEDS: Dicyclomine HCl 10 MG CAPSULE 20 MG PO (06:03)
[2021-10-07] MEDS: cefTRIAXone sodium 1 GM in 0.9 % Sodium Chloride 50 ML IV (06:04)
[2021-10-07 06:07] VITALS: BP 113/67; PULSE 111; TEMP 36.7; O2SAT 98
--- NOTE | 2021-10-07 06:12 | PC.NURSE ---
pt oob to bathroom with a steady gait. pt voicing she still had discomfort. Provider notified. Medicated per Oct. Plan is to discharge pt home after Iv antibiotic.
== END 2021-10-07 06:36 | disposition home or self-care (01) ==
PROVIDERS: Emergency Provider Internal Medicine
DX: N39.0 Urinary tract infection, site not specified (principal); K52.9 Noninfective gastroenteritis and colitis, unspecified; R10.9 Unspecified abdominal pain; F12.90 Cannabis use, unspecified, uncomplicated
CPT/HCPCS: 36415; 80048; 80076; 81001; 81025; 83690; 85025; 87086; 87088; 87186; 96361; 96365; 96374; 96376; 99284; 99285; J0696; J2405

== ENCOUNTER 2021-11-08 12:52 | Emergency (ER) | payer OTHER, SELFPAY ==
[2021-11-08 13:21] VITALS: BP 133/86; PULSE 103; RESP 18; TEMP 36.1; O2SAT 99; BMI 35.6
--- NOTE | 2021-11-08 16:10 | ED.FEMALEGU ---
HPI - Female Genitourinary General Chief complaint: Urogenital-Female Stated complaint: lower abd pain Time Seen by Provider: 11/08/21 15:58 Source: patient Mode of arrival: ambulatory Limitations: no limitations History of Present Illness HPI Narrative: 21-year-old female here with 3 days of pelvic discomfort with white thick vaginal discharge. No urinary symptoms, fevers, chills, back pain, vomiting. Patient is sexually active with 1 male partner. She does not use condoms. She is not on contraception. She did due to home test this week 1 which was negative 1 which was positive. Her last menstrual cycle was October 30 Related Data Previous Rx's Medication Instructions Recorded cyclobenzaprine 5 mg tablet 5 mg PO TID PRN #10 tab 06/21/21 omeprazole 40 mg capsule,delayed 40 mg PO DAILY #30 cap 09/26/21 release ciprofloxacin HCl 500 mg tablet 500 mg PO BID #14 tab 10/07/21 (Cipro) ondansetron 4 mg disintegrating 4 mg PO Q6-8H PRN #7 tab 10/07/21 tablet doxycycline monohydrate 100 mg 100 mg PO BID #28 tab 11/08/21 tablet metronidazole 500 mg tablet 500 mg PO Q12H 14 Days #28 tab 11/08/21 Allergies Allergy/AdvReac Type Severity Reaction Status Date / Time aspirin [ASA] Allergy Mild RASH Verified 11/08/21 13:25 Penicillins [PENICILLINS] Allergy Unknown RASH Verified 11/08/21 13:25 Review of Systems Review of Systems: Yes all other systems are reviewed and are negative Constitutional: Constitutional: Reports no additional constitutional complaints, Denies body ache(s), Denies chills, Denies fever(s), Denies headache(s) and Denies weakness Eyes: Eyes: Reports no additional eye complaints and Denies change in vision ENT: Reports system reviewed and no additional complaints, except as documented, Denies dizziness, Denies headache(s), Denies nasal congestion, Denies nasal discharge and Denies neck pain Cardiovascular: Cardiovascular: Reports no additional cardiovascular complaints, Denies chest pain, Denies leg edema and Denies dyspnea Respiratory: Respiratory: Reports no additional respiratory complaints, Denies cough and Denies dyspnea Gastrointestinal: Gastrointestinal: Reports no additional gastrointestinal complaints, Denies abdominal pain, Denies diarrhea, Denies nausea and Denies vomiting Genitourinary: Genitourinary: Reports no additional female genitourinary complaints, Denies difficulty voiding, Denies dysuria, Reports pelvic pain, Denies flank pain, Denies urinary incontinence, Denies urinary hesitancy, Denies urinary urgency, Reports vaginal discharge, Denies vaginal dryness, Denies vaginal odor and Denies vaginal pruritus Musculoskeletal: Musculoskeletal: Reports no additional musculoskeletal complaints, Denies back pain, Denies arthralgias, Denies joint swelling, Denies neck pain, Denies numbness and Denies tingling Integumentary/Breasts: Skin/Breast: Reports system reviewed and no additional complaints, except as docu and Denies rash Neurologic: Reports system reviewed and no additional complaints, except as documented, Denies Abnormal speech present, Denies dizziness, Denies headache(s), Denies numbness, Denies tingling and Denies weakness PMFSH Past Medical History Attestation statement: The following information was validated with the patient. Source: old records reviewed and nursing notes reviewed Social History Social History Patient Tobacco Use Status: Never used Tobacco Substance Use Type: Marijuana Advance Directives: No Advance Directives Information Provided: Yes Physical Exam Vital Signs: Vital Signs: Last Vital Signs Temp 96.9 F 11/08/21 13:21 Pulse 103 H 11/08/21 13:21 Resp 18 11/08/21 13:21 BP 133/86 11/08/21 13:21 Pulse Ox 99 11/08/21 13:21 BMI result Body Mass Index 35.6 Const: General: cooperative, healthy appearing, comfortable and no acute distress Orientation/consciousness: patient oriented x3 Limitations: no limitations HEENT: Head: Yes normal to inspection Ears: hearing grossly normal bilaterally General nose exam: Normal external nose present Face and sinus: Yes normal facial exam Mouth: Normal oral and palatal mucosa present Throat: Yes posterior oropharynx normal Eyes: General: appearance normal, both eyes and all related structures Pupils: Equal, round and reactive pupils present Neck: Neck: Yes normal visual inspection Chest: Chest palpation & inspection: normal inspection of the chest Resp: Effort & Inspection: normal respiratory effort Auscultation: clear to auscultation bilaterally Cardio: Rate: regular rate Rhythm: regular rhythm Peripheral pulses: Peripheral pulses 2+ throughout GI: Inspection: Yes normal to inspection Palpation (GI): Soft to palpation and nontender Auscultation: normal bowel sounds : Other: Offset Plate Maker (Marichuy PRIETO) External Female Exam: normal external appearance Speculum Exam - Vagina: normal appearance of the vagina and other (mucousy white discharge ) Speculum Exam - Cervix: normal appearance of the cervix Bimanual exam- vagina & uterus: cervical motion tenderness Bimanual Exam- Adnexa, other: normal adnexae and no tenderness Back/Spine/Pelvis: Thoracic/Lumbar Spine: thoracic and lumbar spine normal to inspection Skin: General skin exam: no rashes or lesions noted Neuro: General: patient oriented x3, no focal motor deficits and normal sensation to monofilament Cranial nerves: Yes Equal, round and reactive pupils present Cognition (Neuro): normal cognition Speech: No Abnormal speech present Gait exam (Neuro): Normal gait present Motor exam (neuro): 5/5 motor strength present throughout Extrem: General: Yes normal to inspection Course Course Course Narrative: 21 yo female here with pelvic discomfort and vaginal discharge x 3 days. Will need pelvic exam with testing for CT NG, BV. UA and urine . 1650-UA and urine is negative. STI testing is pending patient treated prophylactically as she has cervical motion tenderness on exam. Patient given ceftriaxone 500 mg IM x1. Will send home with Flagyl and doxycycline for presumed PID. Reviewed worrisome signs and symptoms of when to return to the emergency department. Comfortable discharge home. MDM - Female Genitourinary Differential Diagnosis Differential diagnosis: Likely urinary tract infection, bacterial vaginosis, trichomoniasis, cervicitis and vaginitis Medical Records Attestation: I reviewed the patient's medical records. Lab Data Attestation: I reviewed the patient's lab results. Labs: Lab Results 11/08/21 11/08/21 Range/Units 16:17 16:18 Urine Color YELLOW Urine Appearance HAZY Urine pH 7.0 (5.0-8.0) Ur Specific [place] 1.020 (1.005-1.025) Urine Protein NEG (NEG-TRACE) MG/DL Urine Glucose (UA) NEG (NEG) MG/DL Urine Ketones NEG (NEG) MG/DL Urine Blood NEG (NEG) Urine Nitrite NEG (NEG) Ur Leukocyte Esterase NEG (NEG) Urine Test NEGATIVE (NEGATIVE) Discharge Plan Discharge Clinical Impression: Acute pelvic inflammatory disease (PID) Patient Disposition: Home, Self-Care Instructions: Pelvic Inflammatory Disease (DC) Additional Instructions: Your urine and urinalysis was negative. We sent testing for STDs and vaginal infections. Will not have these results back for a few days. Therefore we are treating you prophylactically for both with antibiotic Return for fever, vomiting Take the medications with food. You cannot drink alcohol with Flagyl it will make you vomit No sex until you know your STD results are. If you are positive you must abstain from unprotected sex for 7 days Prescriptions: New doxycycline monohydrate 100 mg tablet 100 mg PO BID Qty: 28 0RF metronidazole 500 mg tablet 500 mg PO Q12H 14 Days Qty: 28 0RF No Action omeprazole 40 mg capsule,delayed release(DR/EC) 40 mg PO DAILY Qty: 30 0RF cyclobenzaprine 5 mg tablet 5 mg PO TID PRN (Reason: muscle spasm) Qty: 10 0RF ondansetron 4 mg tablet,disintegrating 4 mg PO Q6-8H PRN (Reason: nausea and vomiting) Qty: 7 0RF ciprofloxacin HCl [Cipro] 500 mg tablet 500 mg PO BID Qty: 14 0RF Referrals: Jackson Patricio PA-C [Primary Care Provider] - 1 week (for persistent symptoms ) Stand Alone Forms: Work/School Release Interventions: ED Discharge Assessment Last Done: 11/08/21 17:19 Discharge Date/Time: 11/08/21 17:21
[2021-11-08 16:31] LABS: Appearance Urine HAZY; Color Urine YELLOW; Glucose Urine UA NEG (NEG); Leukocyte Esterase Urine NEG (NEG); Nitrite Urine NEG (NEG); Urine Blood NEG (NEG); Urine Ketones NEG (NEG); Urine Protein NEG (NEG-TRACE)
[2021-11-08 16:33] LABS: UPreg QC Valid YES; Urine Pregnancy NEGATIVE (NEGATIVE)
[2021-11-08] MEDS: cefTRIAXone sodium 500 MG, Lidocaine HCl 1 % MPF 1 ML IM (17:14)
[2021-11-08] MEDS: Lidocaine HCl 1 % MPF 5 ML VIAL SUBCUT (17:15)
[2021-11-09 01:03] LABS: CT PCR NOT DETECTED (Not Detect.); NG PCR NOT DETECTED (Not Detect.)
[2021-11-09 10:01] LABS: BV Int Neg Control Negative (Negative); BV Int Pos Control Positive (Positive)
== END 2021-11-08 17:21 | disposition home or self-care (01) ==
PROVIDERS: Emergency Medicine; Nurse Practitioner Family; Emergency Provider Emergency Medicine Emergency Medical Services; PCP Physician Assistant
DX: N73.9 Female pelvic inflammatory disease, unspecified (principal); R10.2 Pelvic and perineal pain; N89.8 Other specified noninflammatory disorders of vagina; Z79.899 Other long term (current) drug therapy
CPT/HCPCS: 81003; 81025; 87480; 87491; 87510; 87591; 87660; 96365; 96366; 99283; 99284; J0696

== ENCOUNTER 2021-11-25 11:06 | Emergency (ER) | payer OTHER, SELFPAY ==
--- NOTE | ~2021-11-25 | US_ITS ---
EXAMINATION: US ABDOMEN COMPLETE CLINICAL INFORMATION: Upper abdominal pain. COMPARISON: Previous CT of the abdomen and pelvis most recent September 2021 TECHNIQUE: Real-time imaging of the abdominal viscera. FINDINGS: PANCREAS: Normal. ABDOMINAL AORTA: The proximal, mid, and distal segments are normal in caliber. INFERIOR VENA CAVA: Visualized portions are normal. LIVER: Liver echotexture is increased suggestive of fatty infiltration. Liver is upper normal in size. The liver contour is normal. There are areas of focal fatty sparing. No other focal hepatic lesion. There is no intrahepatic biliary duct dilatation seen. GALLBLADDER: Normal. The gallbladder is physiologically distended without evidence of stones, sludge, polyps, wall thickening or pericholecystic fluid. COMMON BILE DUCT: Normal in caliber measuring 0.5 cm in diameter. RIGHT KIDNEY: Normal. No hydronephrosis. No renal calculi or focal parenchymal lesions. The kidney measures 10.2 cm in maximum dimension. LEFT KIDNEY: Normal. No hydronephrosis. No renal calculi or focal parenchymal lesions. The kidney measures 11 cm in maximum dimension. SPLEEN: Normal. The spleen measures 9 cm in maximum dimension. FREE FLUID: None. US/US abdomen complete IMPRESSION: Fatty liver. Otherwise unremarkable exam.
--- NOTE | ~2021-11-25 | XR_ITS ---
EXAMINATION: XR CHEST CLINICAL INFORMATION: Cough productive of sputum. COMPARISON: 10/09/2017 and 08/13/2019 TECHNIQUE: 2 views of the chest were obtained. FINDINGS: No focal pneumonia. No effusion or pneumothorax. 2 of the 3 views obtained at low lung volumes which results in crowding. Stable heart and mediastinum. Straightening of the left heart border typically within normal limits in this demographic. No mass or adenopathy. No edema. Normal gas pattern. Stable mild idiopathic scoliosis. XR/XR chest 2V IMPRESSION: No acute cardiopulmonary process detected.
[2021-11-25 11:56] VITALS: BP 117/77; PULSE 104; RESP 17; TEMP 36.4; O2SAT 98; BMI 35.6
[2021-11-25 12:42] LABS: IDNOW Serial# 08D9AD1C
[2021-11-25 12:43] LABS: Strep A Nucleic Acid Negative (Negative)
[2021-11-25 12:47] LABS: MANUAL DIFF FLAG NO
--- NOTE | 2021-11-25 12:47 | ED_ITS ---
HPI - General Adult General Chief complaint: Upper Respiratory Symptoms <TARA Juares Last Filed: 11/25/21 15:31> Stated complaint: cough sore throat nausea vomiting <TARA Juares Last Filed: 11/25/21 15:31> Time Seen by Provider: 11/25/21 11:43 <TARA Juares Last Filed: 11/25/21 15:31> Source: patient and family <TARA Juares Last Filed: 11/25/21 15:31> Mode of arrival: ambulatory <TARA Juares Last Filed: 11/25/21 15:31> Limitations: no limitations <TARA Juares Last Filed: 11/25/21 15:31> History of Present Illness HPI narrative: 21-year-old female presenting to the ED with multiple complaints which include intermittent abdominal pains in the epigastric abdominal area over the past few weeks worse after eating she reports with associated nausea vomiting Her 2nd complaint is body aches, a sore throat and a cough with clear/yellow color sputum production for the past few days worse today. She reports that her significant other tested positive for the flu over the weekend. She denies any measured fevers, dizziness, headaches, neck pain/stiffness, trouble swallowing or breathing, chest pain or shortness of breath, dyspnea on exertion, orthopnea, back pain, dysuria, hematuria, abnormal vaginal discharge, rashes, recent travel or any other symptoms complaints or concerns at this time. Reports she has had a in the past although still has her gallbladder and her appendix. <Ca TARA Lilly Last Filed: 11/25/21 15:31> Related Data Home medications: Previous Rx's Medication Instructions Recorded cyclobenzaprine 5 mg tablet 5 mg PO TID PRN #10 tab 06/21/21 omeprazole 40 mg capsule,delayed 40 mg PO DAILY #30 cap 09/26/21 release ciprofloxacin HCl 500 mg tablet 500 mg PO BID #14 tab 10/07/21 (Cipro) ondansetron 4 mg disintegrating 4 mg PO Q6-8H PRN #7 tab 10/07/21 tablet doxycycline monohydrate 100 mg 100 mg PO BID #28 tab 11/08/21 tablet metronidazole 500 mg tablet 500 mg PO Q12H 14 Days #28 tab 11/08/21 nitrofurantoin 100 mg PO BID 7 Days #14 cap 11/25/21 monohydrate/macrocrystals 100 mg capsule (Macrobid) oseltamivir 75 mg capsule (Tamiflu) 75 mg PO BID 5 Days #10 cap 11/25/21 <TARA Juares - Last Filed: 11/25/21 15:31> Allergies/adverse reactions: Allergies Allergy/AdvReac Type Severity Reaction Status Date / Time aspirin [ASA] Allergy Mild RASH Verified 11/08/21 13:25 Penicillins [PENICILLINS] Allergy Unknown RASH Verified 11/08/21 13:25 <TAAR Juares Last Filed: 11/25/21 15:31> Review of Systems Review of Systems: Constitutional : + chills/fatigue/malaise, No Weight loss, No Fever, No Night Sweats ENT/Mouth : + Sore Throat, No Hearing loss, No Ear Pain, No Nasal Congestion, No Sinus Pain, No Hoarseness, No Rhinorrhea, No Swallowing Difficulty Eyes: No Eye Pain, No Swelling, No Redness, No Foreign Body, No Discharge, No Vision Changes Cardiovascular : No Chest Pain, No SOB, No Dyspnea on Exertion, No Orthopnea, No Edema, No Palpitations Respiratory : + Cough, + Sputum, No Wheezing, No Smoke Exposure, No Dyspnea Gastrointestinal : Intermittent episodes of nausea/vomiting over the past 2 weeks none today, + epigastric abdominal pain, No Diarrhea, No Constipation, No Hematochezia, No Melena Genitourinary : no irregular bleeding, No Dysuria, No Urinary Frequency, No Hematuria, No Urinary Incontinence, No Urgency, No Flank Pain, No Urinary Flow Changes, No Hesitancy Musculoskeletal : No joint pain, + Myalgias, No Joint Swelling Skin : No Skin Lesions, No rash Neuro : No Weakness, No Numbness, No Paresthesias, No Loss of Consciousness, No Dizziness, No Headache Psych : No Anxiety/Panic, No Depression, No SI/HI/AH/VH, No Social Issues, Heme/Lymph: No Bruising, No Bleeding,No Lymphadenopathy Endocrine : No Polyuria, No Polydipsia, No Temperature Intolerance <TARA Juares Last Filed: 11/25/21 15:31> Yes all other systems are reviewed and are negative <TARA Juares Last Filed: 11/25/21 15:31> [facility] Past Medical History Attestation statement: The following information was validated with the patient. <TARA Juares - Last Filed: 11/25/21 15:31> Social History Social History: Social History Patient Tobacco Use Status: Never used Tobacco Substance Use Type: Marijuana Advance Directives: No Advance Directives Information Provided: No Patient : No <TARA Juares - Last Filed: 11/25/21 15:31> Physical Exam ED Vital Signs: Vital Signs - 24 hr 11/25/21 11:56 Temperature 97.6 F Pulse Rate 104 H Respiratory Rate 17 Blood Pressure 117/77 Pulse Oximetry 98 BMI result Body Mass Index 35.6 Vital signs have been reviewed blood pressure 117/77. Pulse 104 mildly tachycardic. Respirations 17. Temperature 97.6 degrees orally. Oxygen sat uration 98% on room air. <TARA Juares - Last Filed: 11/25/21 15:31> Appearance: Alert. Oriented X3. No acute distress. Head: Normal external exam. Normocephalic. Eyes: PERRLA. EOMI. Conjunctiva and sclera normal. Eyelids normal. ENT: EAC WNL. TM WNL. Posterior Pharynx mildly erythemous no exudates noted. Uvula midline. Moist mucous membranes. No trismus noted. No drooling noted. No muffled voice noted. Normal Voice. Neck: Normal inspection. Neck supple. FROM. No adenopathy. No meningeal signs. CVS: Normal heart rate and rhythm. Heart sound normal. No murmurs noted. Pulses normal throughout. Respiratory: No respiratory distress. Painless inspiration. Breath sounds normal. No wheezes/rales/rhonchi noted. Chest nontender. No accessory muscle usage noted or decreased air movement noted. Abdomen: Soft and TTP of epigastric abd pain. Nondistended. No guarding. No rigidity. Bowel sounds normal in all 4 quadrants. No distention noted. No organomegaly noted. No visible injury noted. No rebound tenderness. Negative Rovsing sign. Negative obturator's sign. Negative psoas sign. Negative Ward sign. Back: No CVA tenderness. Full range of motion noted. Non tender. No rashes noted. Skin: Skin warm and dry. Normal skin color. Normal skin turgor. No rashes/lesions/lacerations noted. Extremities: Extremities exhibit normal range of motion. Extremities nontender. Neuro: Oriented X 3. No motor deficit. No sensory deficit. Reflexes normal. Normal steady gait. CN's II-XII intact bilaterally? Vascular: Distal pulses intact. No cyanosis noted. Normal capillary refill noted. <TARA Juares - Last Filed: 11/25/21 15:31> Course Course Course Narrative: 12:30pm - 21-year-old female presenting to the ED with multiple complaints which include intermittent abdominal pains in the epigastric abdominal area over the past few weeks worse after eating she reports with associated nausea vomiting Her 2nd complaint is body aches, a sore throat and a cough with clear/yellow color sputum production for the past few days worse today. She reports that her significant other tested positive for the flu over the weekend. Plan: Labs, chest x-ray, UA, UHCG, COVID swab, strep swab, influenza swab and an ultrasound then re-evaluate. <TARA Juares - Last Filed: 11/25/21 15:31> Reevaluation(s) Reevaluation #1: - labs returned and alkaline phosphate 130. Otherwise all other labs are within normal limits. UA revealed blood and a trace of leukocytes therefore will treat for UTI. Patient positive for influenza. Negative for COVID and strep. Chest x-ray within normal limits. Therefore at this time will DC home with antibiotics for UTI and Tamiflu for influenza a and instructions return if any new or worsening symptoms to follow up with primary care provider. Patient understands agrees with this plan. <TARA Juares - Last Filed: 11/25/21 15:31> Time: 15:24 <TARA Juares - Last Filed: 11/25/21 15:31> Medical Decision Making Medical Records Medical records reviewed: Yes I reviewed the patient's medical records. <TARA Juares Last Filed: 11/25/21 15:31> Lab Data Lab results reviewed: Yes I reviewed the patient's lab results. <TARA Juares Last Filed: 11/25/21 15:31> Result diagrams: : 11/25/21 12:43 11/25/21 12:43 <TARA Juares - Last Filed: 11/25/21 15:31> Labs: Lab Results 11/25/21 11/25/21 11/25/21 Range/Units 12:14 12:14 12:14 WBC (4.8-10.8) X10*3/uL RBC (4.20-5.50) X10*6/uL Hgb (12.0-16.0) g/dl Hct (37.0-47.0) % MCV (80.0-98.0) fL MCH (27.0-33.0) pg MCHC (31.0-35.0) g/dl RDW (11.0-16.0) % Plt Count (160-400) X10*3/uL MPV (9.4-12.3) fL Immature Gran % (Auto) (0.0-0.4) % Neut % (Auto) (45-73) % Lymph % (Auto) (20-40) % [place] % (Auto) (2-11) % Eos % (Auto) (0-4) % Baso % (Auto) (0-2) % Lymph # (Auto) (1.2-4.9) X10*3/uL [place] # (Auto) (0.1-1.2) X10*3/uL Eos # (Auto) (0.0-0.4) X10*3/uL Baso # (Auto) (0.0-0.2) X10*3/uL Abs Immat Gran (auto) (0.00-0.03) X10*3/uL Absolute Neuts (auto) (2.0-8.3) x10*3/uL Absolute Nucleated RBC (0.0-0.012) X10*3/uL Nucleated RBC % (auto) (0.0-0.2) /100WBC Sodium (135-145) mmol/L Potassium (3.3-5.1) mmol/L Chloride (96-108) mmol/L Carbon Dioxide (22-29) mmol/L Anion Gap (12-20) BUN (9-16) mg/dL Creatinine (0.5-1.4) mg/dL Estim Creat Clear Calc Estimated GFR Random Glucose (60-115) mg/dL Calcium (8.4-10.2) mg/dL Magnesium (1.6-2.6) mg/dL Total Bilirubin (0.0-1.0) mg/dL AST (5-31) U/L ALT (0-31) U/L Alkaline Phosphatase (39-117) U/L Total Protein (6.5-8.0) g/dL Albumin (3.5-5.0) g/dL Lipase (8-78) U/L Beta HCG, Quant mIU/mL Urine Color Urine Appearance Urine pH (5.0-8.0) Ur Specific [place] (1.005-1.025) Urine Protein (NEG-TRACE) MG/DL Urine Glucose (UA) (NEG) MG/DL Urine Ketones (NEG) MG/DL Urine Blood (NEG) Urine Nitrite (NEG) Ur Leukocyte Esterase (NEG) Urine RBC (0) /HPF Urine WBC (0-4) /HPF Ur Squamous Epith Cells /LPF Urine Bacteria /LPF Urine Mucus /LPF COVID-19 (KIKI) Negative (Negative) COVID-19 Clin Com See Note Influenza Type A (CHELSY) Positive A (Negative) Influenza Type B (CHELSY) Negative (Negative) Influenza A & B Note See Note S. pyogenes GrpA CHELSY Negative (Negative) 11/25/21 11/25/21 11/25/21 Range/Units 12:43 12:43 12:53 WBC 7.3 (4.8-10.8) X10*3/uL RBC 4.66 (4.20-5.50) X10*6/uL Hgb 12.1 (12.0-16.0) g/dl Hct 39.0 (37.0-47.0) % MCV 83.7 (80.0-98.0) fL MCH 26.0 L (27.0-33.0) pg MCHC 31.0 (31.0-35.0) g/dl RDW 14.0 (11.0-16.0) % Plt Count 396 (160-400) X10*3/uL MPV 9.2 L (9.4-12.3) fL Immature Gran % (Auto) 0.3 (0.0-0.4) % Neut % (Auto) 68.7 (45-73) % Lymph % (Auto) 16.0 L (20-40) % [place] % (Auto) 10.9 (2-11) % Eos % (Auto) 3.6 (0-4) % Baso % (Auto) 0.5 (0-2) % Lymph # (Auto) 1.2 (1.2-4.9) X10*3/uL [place] # (Auto) 0.8 (0.1-1.2) X10*3/uL Eos # (Auto) 0.3 (0.0-0.4) X10*3/uL Baso # (Auto) 0.0 (0.0-0.2) X10*3/uL Abs Immat Gran (auto) 0.02 (0.00-0.03) X10*3/uL Absolute Neuts (auto) 5.0 (2.0-8.3) x10*3/uL Absolute Nucleated RBC 0.000 (0.0-0.012) X10*3/uL Nucleated RBC % (auto) 0.0 (0.0-0.2) /100WBC Sodium 140 (135-145) mmol/L Potassium 3.6 D (3.3-5.1) mmol/L Chloride 104 (96-108) mmol/L Carbon Dioxide 27 (22-29) mmol/L Anion Gap 13 (12-20) BUN 13 (9-16) mg/dL Creatinine 0.73 (0.5-1.4) mg/dL Estim Creat Clear Calc 120.1 Estimated GFR > 60 Random Glucose 88 (60-115) mg/dL Calcium 9.2 (8.4-10.2) mg/dL Magnesium 1.9 (1.6-2.6) mg/dL Total Bilirubin < 0.2 (0.0-1.0) mg/dL AST 24 (5-31) U/L ALT 30 (0-31) U/L Alkaline Phosphatase 130 H (39-117) U/L Total Protein 7.1 (6.5-8.0) g/dL Albumin 4.1 (3.5-5.0) g/dL Lipase 16 (8-78) U/L Beta HCG, Quant < 2 mIU/mL Urine Color YELLOW Urine Appearance CLOUDY Urine pH 6.5 (5.0-8.0) Ur Specific [place] 1.025 (1.005-1.025) Urine Protein TRACE (NEG-TRACE) MG/DL Urine Glucose (UA) NEG (NEG) MG/DL Urine Ketones 5 (NEG) MG/DL Urine Blood 3+ H (NEG) Urine Nitrite NEG (NEG) Ur Leukocyte Esterase TRACE H (NEG) Urine RBC 0 (0) /HPF Urine WBC 0-2 (0-4) /HPF Ur Squamous Epith Cells 3+ /LPF Urine Bacteria 2+ /LPF Urine Mucus 2+ /LPF COVID-19 (KIKI) (Negative) COVID-19 Clin Com Influenza Type A (CHELSY) (Negative) Influenza Type B (CHELSY) (Negative) Influenza A & B Note S. pyogenes GrpA CHELSY (Negative) <TARA Juares - Last Filed: 11/25/21 15:31> Imaging Data Chest x-ray: Attestation: I personally reviewed and interpreted this imaging study as follows: <TARA Juares - Last Filed: 11/25/21 15:31> Radiologist's impression: FINDINGS: No focal pneumonia. No effusion or pneumothorax. 2 of the 3 views obtained at low lung volumes which results in crowding. Stable heart and mediastinum. Straightening of the left heart border typically within normal limits in this demographic. No mass or adenopathy. No edema. Normal gas pattern. Stable mild idiopathic scoliosis. XR/XR chest 2V IMPRESSION: No acute cardiopulmonary process detected. <TARA Juares - Last Filed: 11/25/21 15:31> Abdominal ultrasound: Attestation: I personally reviewed and interpreted this imaging study as follows: <TARA Juares Last Filed: 11/25/21 15:31> Radiologist's impression: FINDINGS: PANCREAS: Normal. ABDOMINAL AORTA: The proximal, mid, and distal segments are normal in caliber. INFERIOR VENA CAVA: Visualized portions are normal. LIVER: Liver echotexture is increased suggestive of fatty infiltration. Liver is upper normal in size. The liver contour is normal. There are areas of focal fatty sparing. No other focal hepatic lesion. There is no intrahepatic biliary duct dilatation seen. GALLBLADDER: Normal. The gallbladder is physiologically distended without evidence of stones, sludge, polyps, wall thickening or pericholecystic fluid. COMMON BILE DUCT: Normal in caliber measuring 0.5 cm in diameter. RIGHT KIDNEY: Normal. No hydronephrosis. No renal calculi or focal parenchymal lesions. The kidney measures 10.2 cm in maximum dimension. LEFT KIDNEY: Normal. No hydronephrosis. No renal calculi or focal parenchymal lesions. The kidney measures 11 cm in maximum dimension. SPLEEN: Normal. The spleen measures 9 cm in maximum dimension. FREE FLUID: None. US/US abdomen complete IMPRESSION: Fatty liver. Otherwise unremarkable exam. <TARA Juares Last Filed: 11/25/21 15:31> Discharge Plan Discharge Clinical Impression: Influenza, Fatty liver, UTI (urinary tract infection) <TARA Juares Last Filed: 11/25/21 15:31> Patient Disposition: Home, Self-Care <TARA Juares Last Filed: 11/25/21 15:31> Instructions: Urinary Tract Infection in Women (DC), Influenza (ED), Non-Alcoholic Fatty Liver Disease (ED) <TARA Juares Last Filed: 11/25/21 15:31> Prescriptions: New oseltamivir [Tamiflu] 75 mg capsule 75 mg PO BID 5 Days Qty: 10 0RF nitrofurantoin monohyd/m-cryst [Macrobid] 100 mg capsule 100 mg PO BID 7 Days Qty: 14 0RF Rx Instructions: must administer with a meal/food No Action omeprazole 40 mg capsule,delayed release(DR/EC) 40 mg PO DAILY Qty: 30 0RF cyclobenzaprine 5 mg tablet 5 mg PO TID PRN (Reason: muscle spasm) Qty: 10 0RF ondansetron 4 mg tablet,disintegrating 4 mg PO Q6-8H PRN (Reason: nausea and vomiting) Qty: 7 0RF ciprofloxacin HCl [Cipro] 500 mg tablet 500 mg PO BID Qty: 14 0RF doxycycline monohydrate 100 mg tablet 100 mg PO BID Qty: 28 0RF metronidazole 500 mg tablet 500 mg PO Q12H 14 Days Qty: 28 0RF <TARA Juares Last Filed: 11/25/21 15:31> Referrals: Sheng,Jackson, PA-C [Primary Care Provider] - <TARA Juares - Last Filed: 11/25/21 15:31> Stand Alone Forms: Work/School Release <TARA Juares - Last Filed: 11/25/21 15:31> Interventions: ED Discharge Assessment Last Done: 11/25/21 15:39 <TARA Juares - Last Filed: 11/25/21 15:31> Discharge Date/Time: 11/25/21 15:40 <TARA Juares - Last Filed: 11/25/21 15:31> Print Language: Tunisian <TARA Juares - Last Filed: 11/25/21 15:31>
[2021-11-25 12:51] LABS: Influenza A Positive (Negative); Influenza B2 Negative (Negative)
[2021-11-25 12:52] LABS: COVID-19 Test Negative (Negative); IDNOW Serial# 16C4AD1C
[2021-11-25 12:56] LABS: Basophils Percent Auto 0.5 % (0-2); Eosinophils Absolute Auto 0.3 X10*3/uL (0.0-0.4); Eosinophils Percent Auto 3.6 % (0-4); Hemoglobin 12.1 g/dl (12.0-16.0); Imm Gran Abs Auto 0.02 X10*3/uL (0.00-0.03); Imm Gran Pct Auto 0.3 % (0.0-0.4); Lymphocytes Absolute Auto 1.2 X10*3/uL (1.2-4.9); Mean Corpuscular Volume 83.7 fL (80.0-98.0); Mean Platelet Volume 9.2 fL (9.4-12.3); Monocytes Absolute Auto 0.8 X10*3/uL (0.1-1.2); Monocytes Percent Auto 10.9 % (2-11); Neutrophils Percent Auto 68.7 % (45-73); Platelet Count 396 X10*3/uL (160-400); Red Blood Count 4.66 X10*6/uL (4.20-5.50); White Blood Count 7.3 X10*3/uL (4.8-10.8)
[2021-11-25 13:05] LABS: Alanine Aminotransferase 30 U/L (0-31); Albumin Level 4.1 g/dL (3.5-5.0); Alkaline Phosphatase 130 U/L (39-117); Anion Gap 13 (12-20); Aspartate Amino Transferase 24 U/L (5-31); Bilirubin Total < 0.2 mg/dL (0.0-1.0); Blood Urea Nitrogen 13 mg/dL (9-16); Calcium 9.2 mg/dL (8.4-10.2); Carbon Dioxide 27 mmol/L (22-29); Chloride 104 mmol/L (96-108); Creatinine Clr Calc Pharmacy 120.1; Estimated Glomerular Filt Rate > 60; Glucose Random 88 mg/dL (60-115); Lipase 16 U/L (8-78); Magnesium 1.9 mg/dL (1.6-2.6); Potassium 3.6 mmol/L (3.3-5.1); Sodium 140 mmol/L (135-145); Total Protein 7.1 g/dL (6.5-8.0)
[2021-11-25 13:10] LABS: HCG Quantitative < 2 mIU/mL
[2021-11-25 13:12] LABS: Appearance Urine CLOUDY; Color Urine YELLOW; Glucose Urine UA NEG (NEG); Leukocyte Esterase Urine TRACE (NEG); Nitrite Urine NEG (NEG); PH 6.5 (5.0-8.0); Specific Gravity - Urine 1.025 (1.005-1.025); UACC Culture Trigger YES; Urine Blood 3+ (NEG); Urine Ketones 5 MG/DL (NEG); Urine Protein TRACE MG/DL (NEG-TRACE)
[2021-11-25 13:38] LABS: WBC Urine 0-2 /HPF (0-4)
[2021-11-25 13:39] LABS: Bacteria Urine 2+ /LPF; Mucus Urine 2+ /LPF; RBC Urine 0 /HPF (0); Squamous Epithelial Cell Urine 3+ /LPF
== END 2021-11-25 15:40 | disposition home or self-care (01) ==
PROVIDERS: Physician Assistant Medical; Emergency Provider Emergency Medicine; PCP Physician Assistant
DX: J11.1 Influenza due to unidentified influenza virus with other respiratory manifestations (principal); N39.0 Urinary tract infection, site not specified; K76.0 Fatty (change of) liver, not elsewhere classified; R10.10 Upper abdominal pain, unspecified; Z20.822 Contact with and (suspected) exposure to COVID-19
CPT/HCPCS: 36415; 71046; 76700; 80053; 81001; 81003; 83690; 83735; 84702; 85025; 87086; 87502; 87635; 87651; 99284

== ENCOUNTER 2023-03-26 09:08 | Emergency (ER) | payer OTHER, SELFPAY ==
--- NOTE | ~2023-03-26 | US_ITS ---
EXAMINATION: US OBSTETRICAL ULTRASOUND CLINICAL INFORMATION: 10 weeks with cramping. Beta hCG 67,373 COMPARISON: No previous ultrasound at this institution. LMP: not given. Gestational age by maternal dates is 10 weeks 2 days. Estimated date of delivery by maternal dates is 10/20/2023. TECHNIQUE: Transabdominal imaging of pelvis is performed. FINDINGS: There is a single intrauterine gestational sac and, embryo/fetus, and cardiac activity. Yolk sac is not visualized. There is no significant subchorionic hemorrhage or hematoma. The cervix is long and closed. The placenta appears within normal limits. HR: 156 beats per minute. CRL (crown rump length): 4.44 cm (11 weeks 2 days +/- 4 days). ELSA (estimated date of delivery): 10/13/2023 +/- 4 days. MATERNAL ADNEXA: The right maternal ovary measures 2.9 x 2.9 x 1.4 cm. No focal lesion seen. The left maternal ovary measures 2.8 x 2.5 x 2.1 cm. No focal lesion seen. There is no significant maternal adnexal mass. No maternal pelvic ascites. US/US OB <= 14 weeks fetus IMPRESSION: 1. Single intrauterine gestation with ultrasound gestational age of 11 weeks 2 days +/- 4 days. 2. Estimated date of delivery is 10/13/2023 +/- 4 days. 3. No maternal adnexal mass or pelvic ascites. No subchorionic bleed seen.
[2023-03-26 09:10] VITALS: BP 122/70; PULSE 99; RESP 17; TEMP 36.3; O2SAT 96; BMI 36.1
[2023-03-26 09:24] VITALS: BP 121/64; PULSE 95; RESP 20; TEMP 36.9; O2SAT 96
[2023-03-26 09:36] LABS: MANUAL DIFF FLAG NO
[2023-03-26 09:38] LABS: Basophils Percent Auto 0.5 % (0-2); Eosinophils Absolute Auto 0.2 X10*3/uL (0.0-0.4); Eosinophils Percent Auto 2.1 % (0-4); Hematocrit 35.1 % (37.0-47.0); Hemoglobin 11.6 g/dl (12.0-16.0); Imm Gran Abs Auto 0.02 X10*3/uL (0.00-0.03); Imm Gran Pct Auto 0.3 % (0.0-0.4); Lymphocytes Absolute Auto 1.5 X10*3/uL (1.2-4.9); Lymphocytes Percent Auto 19.6 % (20-40); Mean Corpuscular Hemoglobin 28.1 pg (27.0-33.0); Mean Platelet Volume 9.2 fL (9.4-12.3); Monocytes Absolute Auto 0.7 X10*3/uL (0.1-1.2); Monocytes Percent Auto 8.6 % (2-11); Neutrophils Absolute Auto 5.2 x10*3/uL (2.0-8.3); Neutrophils Percent Auto 68.9 % (45-73); Platelet Count 296 X10*3/uL (160-400); Red Blood Count 4.13 X10*6/uL (4.20-5.50); Red Cell Distribution Width 13.6 % (11.0-16.0); White Blood Count 7.6 X10*3/uL (4.8-10.8)
[2023-03-26 09:50] LABS: Anion Gap 12 (12-20); Blood Urea Nitrogen 6 mg/dL (9-16); Calcium 8.7 mg/dL (8.4-10.2); Carbon Dioxide 22 mmol/L (22-29); Chloride 106 mmol/L (96-108); Creatinine Clr Calc Pharmacy 136.6; Estimated Glomerular Filt Rate > 60; Glucose Random 84 mg/dL (60-115); Potassium 3.3 mmol/L (3.3-5.1); Sodium 137 mmol/L (135-145)
[2023-03-26 09:51] LABS: Appearance Urine Cloudy; Color Urine Yellow; Glucose Urine UA Negative (Negative); Leukocyte Esterase Urine Small (1+) (Negative); Nitrite Urine Negative (Negative); PH 8.5 (5.0-9.0); UMIC TRIGGER UACC YES; Urine Blood Negative (Negative); Urine Ketones Negative (Negative); Urine Protein Trace mg/dL (Neg-Trace)
--- NOTE | 2023-03-26 10:05 | ED.GENADULT ---
HPI - General Adult General Chief complaint: Abdominal Pain Stated complaint: 10 wks having lower back pressure Time Seen by Provider: 03/26/23 09:29 Source: patient and RN notes reviewed Mode of arrival: ambulatory Limitations: no limitations History of Present Illness HPI narrative: This is a 22-year-old female, , 10 weeks , presenting to the emergency department for evaluation abdominal cramping and low back pain since yesterday. Patient states that the cramping has been constant. She states that she was on a roller coaster ride yesterday that started to shake and she developed the symptoms. Patient denies any headaches, chest pain, shortness of breath, vomiting, diarrhea. Last bowel movement was this morning. Does endorse nausea secondary to morning sickness however this has been typical for her thus far. She is currently seeing [facility] for her OB care. Denies any vaginal bleeding or discharge. No other complaints or concerns at this time. MD complaint: Abdominal cramping Onset (ago): day(s) Quality: aching Pain Consistency: constant Relieving factors: none Exacerbating factors: none Associated symptoms: denies other symptoms Treatments prior to arrival: none Related Data Previous Rx's Medication Instructions Recorded cyclobenzaprine 5 mg tablet 5 mg PO TID PRN muscle spasm #10 06/21/21 tabs omeprazole 40 mg capsule,delayed 40 mg PO DAILY #30 caps 09/26/21 release ciprofloxacin HCl 500 mg tablet 500 mg PO BID #14 tabs 10/07/21 (Cipro) ondansetron 4 mg disintegrating 4 mg PO Q6-8H PRN nausea and 10/07/21 tablet vomiting #7 tabs doxycycline monohydrate 100 mg 100 mg PO BID #28 tabs 11/08/21 tablet metronidazole 500 mg tablet 500 mg PO Q12H 14 days #28 tabs 11/08/21 nitrofurantoin 100 mg PO BID 7 days #14 caps 11/25/21 monohydrate/macrocrystals 100 mg capsule (Macrobid) oseltamivir 75 mg capsule (Tamiflu) 75 mg PO BID 5 days #10 caps 11/25/21 Allergies Allergy/AdvReac Type Severity Reaction Status Date / Time aspirin [ASA] Allergy Mild RASH Verified 11/08/21 13:25 Penicillins [PENICILLINS] Allergy Unknown RASH Verified 11/08/21 13:25 Review of Systems Review of Systems: Yes all other systems are reviewed and are negative Constitutional: Constitutional: Reports as per [facility] Social History Social History Alcohol intake: never Patient Tobacco Use Status: Never used Tobacco Smoked in Last 30 Days: No Use of substances other than those prescribed or required for medical reasons: No Substance Use Type: Marijuana Advance Directives: No Advance Directives Information Provided: No Physical Exam ED Vital Signs: Vital Signs - 24 hr 03/26/23 09:10 03/26/23 09:24 Temperature 97.4 F 98.4 F Pulse Rate 99 95 Respiratory Rate 17 20 Blood Pressure 122/70 121/64 Pulse Oximetry 96 96 Oxygen Delivery Method Room Air Room Air BMI result Body Mass Index 36.1 Const General: cooperative, comfortable and no acute distress Orientation/consciousness: patient oriented x3 Limitations: no limitations HENMT Head: Yes normal to inspection, Yes normocephalic and Yes atraumatic Ears: hearing grossly normal bilaterally General nose exam: Normal external nose present Face and sinus: Yes normal facial exam Mouth: Normal oral and palatal mucosa present, oropharynx normal and moist mucous membranes Throat: Yes posterior oropharynx normal Eyes General: appearance normal, both eyes and all related structures Eyelids: Yes eyelids normal Conjunctivae: conjunctivae normal Sclerae: sclerae normal Pupils: Equal, round and reactive pupils present EOM: EOMs intact bilaterally Neck Neck: Yes normal visual inspection, Yes full ROM and Yes no lymphadenopathy Lymphatic: no lymphadenopathy noted Chest Chest palpation & inspection: normal inspection of the chest Resp Effort & Inspection: normal respiratory effort and able to speak in complete sentences Auscultation: clear to auscultation bilaterally, no crackles, no rales, no rhonchi and no wheezes Cardio Rate: regular rate Rhythm: regular rhythm Heart sounds: S1 normal heart sound present and S2 normal heart sound present GI Other: Abdomen is soft, non distended, with tenderness to palpation a suprapubic region. No rebound or guarding. Normoactive bowel sounds present in all 4 quadrants. Inspection: Yes normal to inspection Skin General skin exam: no rashes or lesions noted Trauma: no lacerations or abrasions Wounds: no wounds Neuro General: patient oriented x3 and moves all extremities Cranial nerves: Yes Equal, round and reactive pupils present Extrem General: Yes normal to inspection Right upper extremity: normal to inspection Left upper extremity: normal to inspection Right lower extremity: normal to inspection Left lower extremity: normal to inspection Course Reevaluation(s) Reevaluation #1: US revealing single intrauterine gestation, no subchorionic blled, or adnexal mass or pelvic ascites. Discussed results with patient. Encouraged to monitor for any new or worsening symptoms. Advised to f/u with OBGYN. Given return precautions. Pt understands and agrees with plan. Stable for discharge. Medical Decision Making Medical Decision Making [facility] Narrative: 22-year-old female, 10 weeks , presenting to the emergency department for evaluation of lower abdominal cramping since yesterday. No vaginal bleeding or discharge. Has been seeing [facility] for care. No complications with the thus far. Plan: Labs, UA, Rh type, ultrasound Differential Diagnosis Differential Diagnoses: The differential diagnosis associated with the presentation includes , threatened , UTI, Lab Data [facility] Lab Attestation statement: I reviewed the patient's lab results. No leukocytosis, normocytic anemia noted. UA appears to be contaminated. Will not treat, wait for culture. 03/26/23 09:31 03/26/23 09:31 Labs: Lab Results 03/26/23 03/26/23 03/26/23 Range/Units 09:31 09:31 09:31 WBC 7.6 (4.8-10.8) X10*3/uL RBC 4.13 L (4.20-5.50) X10*6/uL Hgb 11.6 L (12.0-16.0) g/dl Hct 35.1 L (37.0-47.0) % MCV 85.0 (80.0-98.0) fL MCH 28.1 (27.0-33.0) pg MCHC 33.0 (31.0-35.0) g/dl RDW 13.6 (11.0-16.0) % Plt Count 296 D (160-400) X10*3/uL MPV 9.2 L (9.4-12.3) fL Immature Gran % (Auto) 0.3 (0.0-0.4) % Neut % (Auto) 68.9 (45-73) % Lymph % (Auto) 19.6 L (20-40) % [place] % (Auto) 8.6 (2-11) % Eos % (Auto) 2.1 (0-4) % Baso % (Auto) 0.5 (0-2) % Lymph # (Auto) 1.5 (1.2-4.9) X10*3/uL [place] # (Auto) 0.7 (0.1-1.2) X10*3/uL Eos # (Auto) 0.2 (0.0-0.4) X10*3/uL Baso # (Auto) 0.0 (0.0-0.2) X10*3/uL Abs Immat Gran (auto) 0.02 (0.00-0.03) X10*3/uL Absolute Neuts (auto) 5.2 (2.0-8.3) x10*3/uL Absolute Nucleated RBC 0.000 (0.0-0.012) X10*3/uL Nucleated RBC % (auto) 0.0 (0.0-0.2) /100WBC Sodium 137 (135-145) mmol/L Potassium 3.3 (3.3-5.1) mmol/L Chloride 106 (96-108) mmol/L Carbon Dioxide 22 (22-29) mmol/L Anion Gap 12 (12-20) BUN 6 L (9-16) mg/dL Creatinine 0.64 (0.5-1.4) mg/dL Estim Creat Clear Calc 136.6 Estimated GFR > 60 Random Glucose 84 (60-115) mg/dL Calcium 8.7 (8.4-10.2) mg/dL Beta HCG, Quant 80551 mIU/mL Urine Color Urine Appearance Urine pH (5.0-9.0) Ur Specific [place] (1.005-1.025) Urine Protein (Neg-Trace) mg/dL Urine Glucose (UA) (Negative) mg/dL Urine Ketones (Negative) mg/dL Urine Blood (Negative) Urine Nitrite (Negative) Ur Leukocyte Esterase (Negative) Urine RBC (0-2) /HPF Urine WBC (0-5) /HPF Ur Squamous Epith Cells (0-2) /HPF Urine Bacteria (None Seen) Hyaline Casts (0-2) /LPF Blood Type 03/26/23 03/26/23 Range/Units 09:41 09:41 WBC (4.8-10.8) X10*3/uL RBC (4.20-5.50) X10*6/uL Hgb (12.0-16.0) g/dl Hct (37.0-47.0) % MCV (80.0-98.0) fL MCH (27.0-33.0) pg MCHC (31.0-35.0) g/dl RDW (11.0-16.0) % Plt Count (160-400) X10*3/uL MPV (9.4-12.3) fL Immature Gran % (Auto) (0.0-0.4) % Neut % (Auto) (45-73) % Lymph % (Auto) (20-40) % [place] % (Auto) (2-11) % Eos % (Auto) (0-4) % Baso % (Auto) (0-2) % Lymph # (Auto) (1.2-4.9) X10*3/uL [place] # (Auto) (0.1-1.2) X10*3/uL Eos # (Auto) (0.0-0.4) X10*3/uL Baso # (Auto) (0.0-0.2) X10*3/uL Abs Immat Gran (auto) (0.00-0.03) X10*3/uL Absolute Neuts (auto) (2.0-8.3) x10*3/uL Absolute Nucleated RBC (0.0-0.012) X10*3/uL Nucleated RBC % (auto) (0.0-0.2) /100WBC Sodium (135-145) mmol/L Potassium (3.3-5.1) mmol/L Chloride (96-108) mmol/L Carbon Dioxide (22-29) mmol/L Anion Gap (12-20) BUN (9-16) mg/dL Creatinine (0.5-1.4) mg/dL Estim Creat Clear Calc Estimated GFR Random Glucose (60-115) mg/dL Calcium (8.4-10.2) mg/dL Beta HCG, Quant mIU/mL Urine Color Yellow Urine Appearance Cloudy Urine pH 8.5 (5.0-9.0) Ur Specific [place] 1.020 (1.005-1.025) Urine Protein Trace (Neg-Trace) mg/dL Urine Glucose (UA) Negative (Negative) mg/dL Urine Ketones Negative (Negative) mg/dL Urine Blood Negative (Negative) Urine Nitrite Negative (Negative) Ur Leukocyte Esterase Small (1+) H (Negative) Urine RBC 3-5 H (0-2) /HPF Urine WBC 0-5 (0-5) /HPF Ur Squamous Epith Cells >20 (0-2) /HPF Urine Bacteria 4+ (None Seen) Hyaline Casts 3-5 (0-2) /LPF Blood Type O Positive Radiology Impression Discussion of test interpretation with radiology: I have reviewed the radiologist's reading. Radiologist Impression: EXAMINATION:? US OBSTETRICAL ULTRASOUND CLINICAL INFORMATION:? 10 weeks with cramping. Beta hCG 67,373 COMPARISON:? No previous ultrasound at this institution. LMP: not given. Gestational age by maternal dates is 10 weeks 2 days. Estimated date of delivery by maternal dates is 10/20/2023. TECHNIQUE: Transabdominal imaging of pelvis is performed. ? FINDINGS: There is a single intrauterine gestational sac and, embryo/fetus, and cardiac activity. Yolk sac is not visualized. There is no significant subchorionic hemorrhage or hematoma. The cervix is long and closed. The placenta appears within normal limits. HR: 156 beats per minute. CRL (crown rump length): ? 4.44 cm (11 weeks 2 days +/- 4 days). ELSA (estimated date of delivery):? 10/13/2023 +/- 4 days. ? MATERNAL ADNEXA: ? ? The right maternal ovary measures 2.9 x 2.9 x 1.4 cm. No focal lesion seen. The left maternal ovary measures 2.8 x 2.5 x 2.1 cm. No focal lesion seen. There is no significant maternal adnexal mass. No maternal pelvic ascites. US/US OB <= 14 weeks fetus IMPRESSION: 1. Single intrauterine gestation with ultrasound gestational age of? 11 weeks 2 days +/- 4 days. 2. Estimated date of delivery is 10/13/2023 +/- 4 days. 3. No maternal adnexal mass or pelvic ascites. No subchorionic bleed seen. Dictated By: Rodrigo Nova MD External Record Review External record reviewed: Inpatient record, Office record, Outpatient record, Prior outpatient labs, Prior outpatient radiology, Primary care record and Outside ED record Discharge Plan Discharge Clinical Impression: Patient Disposition: Home, Self-Care Instructions: at 11 to 14 Weeks (ED) Additional Instructions: Your ultrasound revealed a single in the right spot, approximately gestational age of 11 weeks 2 days +/-4 days. Estimated date of delivery is 10/13/2023 +/-4 days. Your labs, exam and urine were reassuring today. Please follow-up with your OBGYN regarding this visit. If any new or worsening symptoms occur, including but not limited to worsening abdominal pain, vaginal discharge or bleeding, please return for re-evaluation. Prescriptions: No Action omeprazole 40 mg capsule,delayed release(DR/EC) 40 mg PO DAILY Qty: 30 0RF cyclobenzaprine 5 mg tablet 5 mg PO TID PRN (Reason: muscle spasm) Qty: 10 0RF ondansetron 4 mg tablet,disintegrating 4 mg PO Q6-8H PRN (Reason: nausea and vomiting) Qty: 7 0RF ciprofloxacin HCl [Cipro] 500 mg tablet 500 mg PO BID Qty: 14 0RF doxycycline monohydrate 100 mg tablet 100 mg PO BID Qty: 28 0RF metronidazole 500 mg tablet 500 mg PO Q12H 14 Days Qty: 28 0RF oseltamivir [Tamiflu] 75 mg capsule 75 mg PO BID 5 Days Qty: 10 0RF nitrofurantoin monohyd/m-cryst [Macrobid] 100 mg capsule 100 mg PO BID 7 Days Qty: 14 0RF Rx Instructions: must administer with a meal/food Interventions: ED Discharge Assessment Last Done: 03/26/23 12:50 Discharge Date/Time: 03/26/23 12:51
[2023-03-26 10:06] LABS: Bacteria Urine 4+ (None Seen); Squamous Epithelial Cell Urine >20 /HPF (0-2); UACC Culture Trigger YES; WBC Urine 0-5 /HPF (0-5)
--- NOTE | 2023-03-26 10:16 | PC.NURSE ---
pt aox3, reporting central lower abd pain since yesterday after going on a ride at [employer]. gasper vaginal bleeding, pt 10 weeks . pain radiating to back.
== END 2023-03-26 12:51 | disposition home or self-care (01) ==
PROVIDERS: Emergency Provider Emergency Medicine; PCP Physician Assistant
DX: O26.891 Other specified pregnancy related conditions, first trimester (principal); R10.30 Lower abdominal pain, unspecified; Z3A.11 11 weeks gestation of pregnancy
CPT/HCPCS: 36415; 76801; 80048; 81001; 84702; 85025; 86900; 86901; 87086; 99284

== ENCOUNTER 2023-06-22 15:49 | Outpatient (AMB) | payer OTHER, SELFPAY ==
[2023-06-22 16:05] VITALS: PULSE 117; O2SAT 98; BMI 37.6
--- NOTE | 2023-06-22 16:05 | MHC.PC.OV ---
Vital Signs 06/22/23 16:05 Height 5 ft 1 in Weight 199 lb 2 oz BMI 37.6 Blood Pressure Location Lt brachial Position Sitting Pulse 117 H Pulse Source Pulse Oximeter Pulse Oximetry (%) 98 Oxygen Delivery Method Room Air Intake Visit Reasons: New patient-requesting PE- NEEDS PHQ9+THRIVE Intake Note: Patient is a new patient here to establish care, moved from [place]. Pt is 20 weeks . 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 Accompanied by: Significant Other Is last menstrual period known: No Post menopausal: No Patient : Yes (20 weeks gestation ) Allergies aspirin [ASA] Allergy (Mild, Verified 06/22/23 16:43) RASH Penicillins [PENICILLINS] Allergy (Unknown, Verified 06/22/23 16:43) RASH Medication List - Last Reconciled 06/22/23 by Jackson Patricio PA-C vit no.[id number] 27 mg iron- 800 mcg ( Vitamin) 1 tab PO DAILY Tobacco use date assessed: 06/22/23 Dental Screening Dental Screen Date: 06/22/23 Did you have a dental visit in the last 12 months?: No Did you have a dental problem in the last 6 months where you did not have access to dental care?: No Was dental information given to patient?: Yes HPI New patient-requesting PE- NEEDS PHQ9+THRIVE HPI Details Patient is a 22-year-old female here today for new patient annual physical. Patient previously moved from [place] Currently 20 weeks and being followed by [facility]. Scoliosis -was diagnosed as a child with a mild scoliosis. Has never needed surgery. Continues to have some mild to moderate back pain. She does report worsening back pain ever since her 1st child was born. [facility] Medical History section wound complication Social History Housing: Apartment Alcohol intake: never Patient Tobacco Use Status: Never used Tobacco e-Cigarette/Vaping Use: Never Used Substance Use Type: Marijuana service: No Current occupational status: unemployed Cognitive needs: No Hearing needs: No Vision needs: No Questionnaire PHQ-9 Over the last 2 weeks, how often have you been bothered by any of the following problems? 1. Little interest or pleasure in doing things: not at all 2. Feeling down, depressed, or hopeless: not at all 3. Trouble falling or staying asleep, or sleeping too much: not at all 4. Feeling tired or having little energy: not at all 5. Poor appetite or overeating: not at all 6. Feeling bad about yourself - or that you are a failure or have let yourself or your family down: not at all 7. Trouble concentrating on things, such as reading the newspaper or watching television: not at all 8. Moving or speaking so slowly that other people could have noticed. Or the opposite - being so fidgety or restless that you have been moving around a lot more than usual: not at all 9. Thoughts that you would be better off or of hurting yourself in some way: not at all Total score: 0 Depression Screening Interpretation: Negative Depression Screening Done: Yes 64862 - PHQ-9 Billing: Yes Source: Developed by Drs. Mukul Bach, Marge Doty, Luke Enriquez and colleagues, with an educational betsy from [employer]. Thrive Questionnaire Date Thrive assessed: 06/22/23 I am a: Patient What is your living situation today?: I have a steady place to live Within the past 12 months, did the food you bought not last and you didn't have the money to get more?: Never true Within the past 12 months, did you worry whether your food would run out before you got money to buy more?: Never true Do you have trouble paying for medicines?: No Do you have trouble getting transportation to medical appointments?: No Do you have trouble paying your heating and electricity bill?: No Do you have trouble taking care of your child, family member or friend?: No Do you have trouble with day-to-day activities such as bathing, preparing meals, shopping, managing finances, etc.?: No Are you currently unemployed and looking for a job?: No Are you interested in more education?: No Please select the resources that you would like help with: None Currently or been in a relationship where the following occur: no concerns reported AUDIT C Alcohol Use Questionnaire (AUDIT-C) 1. How often do you have a drink containing alcohol?: Never 3. How often do you have six or more drinks on one occasion?: Never Total Score: 0 Score Reviewed/Action Taken: Yes IZABEL-7 AMB Questionnaire IZABEL-7 Date IZABEL - 7 assessed: 06/22/23 Feeling nervous, anxious, or on edge: 0 = Not at all Not being able to stop or control worryin = Not at all Worrying too much about different things: 0 = Not at all Trouble relaxin = Not at all Being so restless that it is hard to sit still: 0 = Not at all Becoming easily annoyed or irritable: 0 = Not at all Feeling afraid as if something awful might happen: 0 = Not at all Total IZABEL-7 score (0-4 normal; 5-9 mild; 10-14 moderate; 15-21 severe): 0 Source: Developed by Drs. Mukul Bach, Marge Doty, Luke Enriquez and colleagues, with an educational betsy from [employer]. IZABEL-7 Assessment Billing IZABEL-7 Assessment Tool: IZABEL-7 Assessment 86364 Review of Systems Const Denies body aches, Denies chills, Denies excessive sweating, Denies fatigue, Denies fever(s) and Denies headache(s) Eyes Denies blurry vision ENT Denies dysphagia, Denies vertigo, Denies dizziness, Denies headache(s), Denies hearing loss and Denies tinnitus Card Denies chest pain, Denies chest pain with activity, Denies syncope, Denies irregular heart rhythm and Denies dyspnea Resp Denies chest congestion, Denies cough, Denies hemoptysis, Denies dyspnea and Denies wheezing GI Denies abdominal pain, Denies melena, Denies hematochezia, Denies coffee ground emesis, Denies dysphagia, Denies diarrhea, Denies nausea and Denies vomiting Denies urinary frequency, Denies dysuria, Denies urinary hesitancy and Denies urinary urgency Musc Denies arthralgias, Denies limited range of motion, Denies muscle cramps and Denies muscle weakness Skin/Breast Denies rash and Denies skin ulcer Neuro Denies Abnormal speech present, Denies confusion, Denies vertigo, Denies dizziness, Denies syncope, Denies headache(s), Denies memory loss and Denies seizure-like activity Psych Denies anxiety, Denies confusion, Denies depression, Denies memory loss, Denies panic attacks and Denies paranoia Endo Denies excessive sweating, Denies fatigue, Denies flushing, Denies polydipsia and Denies polyuria Aller/Immun Denies wheezing Physical exam (Primary Care) Vital Signs: Last Vital Signs Pulse 117 H 06/22/23 16:05 Pulse Ox 98 06/22/23 16:05 Oxygen Delivery Method Room Air 06/22/23 16:05 BMI result Body Mass Index 37.6 Tobacco/Smoking Status: Tobacco use Status Tobacco use date assessed 06/22/23 06/22/23 16:27 Patient Tobacco Use Status Never used Tobacco 06/22/23 16:06 e-Cigarette/Vaping Use Never Used 06/22/23 16:35 PHQ-9: PHQ-9 Score PHQ-9: Total score 0 06/23/23 11:32 Depression Screening Interpretation: Negative Thrive Assessment: Date of Thrive Assessment Date Thrive assessed 06/22/23 06/22/23 16:27 Currently or been in a relationship where the following occur: no concerns reported Const General: cooperative, comfortable, no acute distress, alert and awake; No confusion Orientation/consciousness: oriented to person, oriented to place, patient oriented x3 and No confusion HENMT Head: Yes normocephalic Ears: external ears normal and TM's normal bilaterally Face and sinus: No sinus tenderness Mouth: Normal oral and palatal mucosa present and tongue normal Teeth and gingiva: dentition normal and gingiva normal Throat: Yes posterior oropharynx normal, Yes tonsils normal and Yes uvula midline Eyes Conjunctivae: conjunctivae normal Sclerae: sclerae normal Pupils: Equal, round and reactive pupils present EOM: EOMs intact bilaterally Direct Ophthalmoscopy: No no photophobia Neck Neck: Yes no lymphadenopathy, No tender and Yes no JVD Thyroid: Thyroid normal Carotids: no bruits Chest Chest palpation & inspection: no tenderness Resp Effort & Inspection: normal respiratory effort, no audible wheezes, not labored and no stridor Auscultation: no crackles, no rales, no rhonchi and no wheezes Cardio Jugular venous distension: no JVD Rate: regular rate, not bradycardic and not tachycardic Rhythm: regular rhythm Bruits: no carotid bruits Peripheral pulses: Peripheral pulses 2+ throughout GI Inspection: Yes normal to inspection, No abdominal wall ecchymosis and No visible herniation Palpation (GI): Soft to palpation, nontender, no guarding, not rigid and No hepatosplenomegaly present Auscultation: normoactive bowel sounds General: Yes no CVA tenderness Back/Spine/Pelvis Back: no CVA tenderness and No back tenderness Cervical Spine: cervical ROM normal Thoracic/Lumbar Spine: thoracic and lumbar spine normal to inspection, straight leg raise negative bilaterally, No thoraco-lumbar ROM limited and No lumbar spinal tenderness Skin Lesions: no lesions Rashes: no rashes Wounds: no wounds Neuro General: oriented to person, oriented to place, patient oriented x3, CN's II-XI intact bilaterally and No confusion Cranial nerves: Yes Equal, round and reactive pupils present and Yes Normal accommodation reflex present Cognition (Neuro): normal cognition Speech: No Abnormal speech present Gait exam (Neuro): Normal gait present Motor exam (neuro): 5/5 motor strength present throughout Extrem Right upper extremity: full ROM; no cyanosis Left upper extremity: full ROM; no cyanosis Right lower extremity: no edema Left lower extremity: no edema Psych Appearance: grossly normal Mental Status: mental status grossly normal Affect: normal affect Attitude: cooperative Thought process: Normal thought process present Office Procedures Flu Questionnaire Does the patient have a severe egg allergy?: No Does the patient have severe life threatening allergies?: No Does the patient have a fever or illness today?: No Has the patient ever had Guillain-[place] Syndrome?: No Has the patient ever had any past reaction to a flu shot?: No Immunizations flu vacc [id number] 6mos up(PF) 60 mcg(15 mcgx4)/0.5 mL IM syringe Performing Provider: Jackson Patricio PA-C [facility] Administered by: SHEFALI Roca on 06/22/23 16:30 Dose Route Admin Location Dispensed Lot Number Expiration Date NDC 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 Inspector 0.5 mL IM Left Deltoid 0.5 mL [id number] 02/05/24 [id number] [employer] VIS Given Date VIS Provided VIS Publication Date 06/22/23 Single Vaccine 21 Eligibility Eligibility Date Funding Source Not [facility] Eligible 06/22/23 Private Assessment and Plan Assessment & Plan (1) Annual physical exam: Code(s): Z00.00 - Encounter for general adult medical examination without abnormal findings (2) : Code(s): Z34.90 - Encounter for supervision of normal , unspecified, unspecified trimester Qualifiers: Weeks of gestation: 23 weeks Qualified Code(s): Z3A.23 - 23 weeks gestation of Plan: Currently 20 weeks . Followed by [facility]. has been uneventful. (3) Screening for diabetes mellitus (DM): Code(s): Z13.1 - Encounter for screening for diabetes mellitus (4) Low back pain: Code(s): M54.50 - Low back pain, unspecified Qualifiers: Chronicity: chronic Back pain laterality: bilateral Sciatica presence: without sciatica Qualified Code(s): M54.50 - Low back pain, unspecified; G89.29 - Other chronic pain Plan: Does have a long history of low back pain. Reports having a been diagnosed with scoliosis as a child. Offered physical therapy though patient declines at this time. Orders: Orders Influenza [id number] Immunization 06/22/23 Z23 - Encounter for immunization Comprehensive [place]. Panel Fast 06/22/23 Z13.1 - Encounter for screening for diabetes mellitus Complete Blood Count no Diff 06/22/23 Z13.1 - Encounter for screening for diabetes mellitus Coding Level of Care Code New Pt Prev Care 18-39yr([id number] Diagnoses Annual physical exam Z00.00 23 weeks gestation of Z3A.23 Weeks of gestation: 23 weeks Screening for diabetes mellitus (DM) Z13.1 Chronic bilateral low back pain without sciatica M54.50; G89.29 Chronicity: chronic Back pain laterality: bilateral Sciatica presence: without sciatica Additional Codes IZABEL-7 Assessment Billing - IZABEL-7 Assessment Tool: IZABEL-7 Assessment [id number] ([id number])
== END 2023-06-22 17:05 | disposition home or self-care (01) ==
PROVIDERS: PCP Physician Assistant; Visit Provider Physician Assistant
DX: Z23 Encounter for immunization (principal)
CPT/HCPCS: 90471; 90686; 99385

== ENCOUNTER 2023-08-10 15:36 | Outpatient (AMB) | payer OTHER, SELFPAY ==
[2023-08-10 15:45] VITALS: BP 100/62; PULSE 123; O2SAT 99; BMI 37.9
--- NOTE | 2023-08-10 15:45 | MHC.PC.OV ---
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 Accompanied by: Self / Same As Patient Allergies aspirin [ASA] Allergy (Mild, Verified 08/10/23 16:08) RASH Penicillins [PENICILLINS] Allergy (Unknown, Verified 08/10/23 16:08) RASH Medication List - Last Reconciled 08/10/23 by Jackson Patricio PA-C vit no.[id number] 27 mg iron- 800 mcg ( Vitamin) 1 tab PO DAILY Tobacco use date assessed: 08/10/23 Dental Screening Dental Screen Date: 08/10/23 Did you have a dental visit in the last 12 months?: Yes Did you have a dental problem in the last 6 months where you did not have access to dental care?: No Was dental information given to patient?: Patient has dentist HPI 6 Weeks F/U HPI Details Patient is a 22-year-old female here today for 6 week follow-up visit. Currently in her 3rd trimester of . She is due in early October 2023 Patient was interested in skin tag removal over the left side of her neck. She has 2 large skin tags that often get caught on jewlery and cause her pain [facility] Medical History section wound complication Social History Housing: Apartment Alcohol intake: never Patient Tobacco Use Status: Never used Tobacco e-Cigarette/Vaping Use: Never Used Substance Use Type: Marijuana service: No Current occupational status: unemployed Cognitive needs: No Hearing needs: No Vision needs: No Questionnaire PHQ-9 Over the last 2 weeks, how often have you been bothered by any of the following problems? 1. Little interest or pleasure in doing things: not at all 2. Feeling down, depressed, or hopeless: not at all 3. Trouble falling or staying asleep, or sleeping too much: not at all 4. Feeling tired or having little energy: not at all 5. Poor appetite or overeating: not at all 6. Feeling bad about yourself - or that you are a failure or have let yourself or your family down: not at all 7. Trouble concentrating on things, such as reading the newspaper or watching television: not at all 8. Moving or speaking so slowly that other people could have noticed. Or the opposite - being so fidgety or restless that you have been moving around a lot more than usual: not at all 9. Thoughts that you would be better off or of hurting yourself in some way: not at all Total score: 0 Depression Screening Interpretation: Negative Depression Screening Done: Yes 22772 - PHQ-9 Billing: Yes Source: Developed by Drs. Mukul Bach, Marge Doty, Luke Enriquez and colleagues, with an educational betsy from [employer]. Thrive Questionnaire Date Thrive assessed: 08/10/23 I am a: Patient What is your living situation today?: I have a steady place to live Within the past 12 months, did the food you bought not last and you didn't have the money to get more?: Never true Within the past 12 months, did you worry whether your food would run out before you got money to buy more?: Never true Do you have trouble paying for medicines?: No Do you have trouble getting transportation to medical appointments?: No Do you have trouble paying your heating and electricity bill?: No Do you have trouble taking care of your child, family member or friend?: No Do you have trouble with day-to-day activities such as bathing, preparing meals, shopping, managing finances, etc.?: No Are you currently unemployed and looking for a job?: No Are you interested in more education?: No Please select the resources that you would like help with: None Currently or been in a relationship where the following occur: no concerns reported AUDIT C Alcohol Use Questionnaire (AUDIT-C) 1. How often do you have a drink containing alcohol?: Never 3. How often do you have six or more drinks on one occasion?: Never Total Score: 0 Score Reviewed/Action Taken: Yes IZABEL-7 AMB Questionnaire IZABEL-7 Date IZABEL - 7 assessed: 08/10/23 Feeling nervous, anxious, or on edge: 0 = Not at all Not being able to stop or control worryin = Not at all Worrying too much about different things: 0 = Not at all Trouble relaxin = Not at all Being so restless that it is hard to sit still: 0 = Not at all Becoming easily annoyed or irritable: 0 = Not at all Feeling afraid as if something awful might happen: 0 = Not at all Total IZABEL-7 score (0-4 normal; 5-9 mild; 10-14 moderate; 15-21 severe): 0 Source: Developed by Drs. Mukul Bach, Marge Doty, Luke Enriquez and colleagues, with an educational betsy from [employer]. IZABEL-7 Assessment Billing IZABEL-7 Assessment Tool: IZABEL-7 Assessment [id number] Review of Systems Const Denies headache(s) Eyes Denies loss of vision ENT Denies vertigo, Denies dizziness, Denies headache(s) and Denies sore throat Card Denies chest pain, Denies leg edema and Denies lightheadedness Resp Denies cough, Denies hemoptysis and Denies wheezing GI Denies abdominal pain, Denies melena, Denies constipation, Denies diarrhea and Denies vomiting Denies urinary frequency, Denies dysuria and Denies urinary urgency Musc Denies arthralgias, Denies joint swelling, Denies numbness and Denies tingling Neuro Denies Abnormal speech present, Denies behavioral changes, Denies vertigo, Denies dizziness, Denies headache(s), Denies loss of vision, Denies memory loss, Denies numbness and Denies tingling Psych Denies anxiety, Denies behavioral changes, Denies depression, Denies memory loss and Denies panic attacks Omar/Lymph Denies easy bleeding and Denies easy bruising Aller/Immun Denies wheezing Physical exam (Primary Care) Vital Signs: Last Vital Signs Pulse 123 H 08/10/23 15:45 BP 100/62 08/10/23 15:45 Pulse Ox 99 08/10/23 15:45 Oxygen Delivery Method Room Air 08/10/23 15:45 BMI result Body Mass Index 37.9 Tobacco/Smoking Status: Tobacco use Status Tobacco use date assessed 08/10/23 08/10/23 15:53 Patient Tobacco Use Status Never used Tobacco 08/10/23 15:53 e-Cigarette/Vaping Use Never Used 08/10/23 15:53 PHQ-9: PHQ-9 Score PHQ-9: Total score 0 08/10/23 16:12 Depression Screening Interpretation: Negative Thrive Assessment: Date of Thrive Assessment Date Thrive assessed 08/10/23 08/10/23 15:53 Currently or been in a relationship where the following occur: no concerns reported Const General: healthy appearing, no acute distress, alert and awake Nutritional Appearance: well nourished Orientation/consciousness: oriented to person, oriented to place and oriented to time HENMT Ears: TM's normal bilaterally General nose exam: Normal nasal mucous membranes and turbinates present Eyes Conjunctivae: conjunctivae normal Sclerae: sclerae normal Pupils: Equal, round and reactive pupils present Neck Neck: Yes no lymphadenopathy and Yes no JVD Thyroid: Thyroid normal Carotids: no bruits Neck images: 1. 2 LARGE SKIN TAGS NOTED OVER LEFT ANTERIOR LATERAL NECK. Resp Effort & Inspection: normal respiratory effort and not tachypneic Auscultation: no crackles, no rales, no rhonchi and no wheezes Cardio Rate: regular rate Rhythm: regular rhythm Heart sounds: no murmurs and normal S1 and S2 GI Palpation (GI): Soft to palpation, nontender, no hepatomegaly and no splenomegaly Auscultation: normal bowel sounds Skin General skin exam: no rashes or lesions noted and dry skin Neuro General: oriented to person, oriented to place and oriented to time Cranial nerves: Yes Equal, round and reactive pupils present Speech: No Abnormal speech present Gait exam (Neuro): Normal gait present Motor exam (neuro): no tremor noted Extrem Right upper extremity: full ROM Left upper extremity: full ROM Right lower extremity: full ROM; no edema Left lower extremity: full ROM; no edema Psych Mental Status: mental status grossly normal Speech and movement: Normal speech and movement present Affect: normal affect Attitude: cooperative Thought process: Normal thought process present Office Procedures Skin Tag Removal Details: # 2 Skin tags identified over left side of neck. Clean both areas with alcohol and iodine left to dry. Area is anesthetized with 1% xylocaine. 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 has been uncomplicated. She reports she has been scheduled for a as she has needed a for her previous . (2) Skin tag: Code(s): L91.8 - Other hypertrophic disorders of the skin Plan: As per office procedure note.#2 neck skin tags removed. Patient tolerated procedure well. Coding Level of Care Code Est Pt Level 3 (04685) Diagnoses 32 weeks gestation of Z3A.32 Weeks of gestation: 32 weeks Skin tag L91.8 Additional Codes IZABEL-7 Assessment Billing - IZABEL-7 Assessment Tool: IZABEL-7 Assessment [id number] ([id number])
== END 2023-08-10 16:29 | disposition home or self-care (01) ==
PROVIDERS: PCP Physician Assistant; Visit Provider Physician Assistant
DX: Z3A.32 32 weeks gestation of pregnancy (principal); L91.8 Other hypertrophic disorders of the skin
CPT/HCPCS: 99213

== ENCOUNTER 2023-09-10 02:15 | Emergency (ER) | payer OTHER, SELFPAY ==
[2023-09-10 02:22] VITALS: BP 115/67; PULSE 135; RESP 20; TEMP 36.8; O2SAT 96; BMI 38.9
--- NOTE | 2023-09-10 02:38 | ECG_ITS ---
Test Reason : FAST HEART RATE Blood Pressure : / mmHG Vent. Rate : 127 BPM Atrial Rate : 127 BPM P-R Int : 144 ms QRS Dur : 068 ms QT Int : 298 ms P-R-T Axes : 050 045 008 degrees QTc Int : 433 ms Sinus tachycardia Otherwise normal ECG When compared with ECG of 09-OCT-2017 08:05, No significant change was found Referred By: Emily Galvan Electronically Signed By:VIRA LEE MD
[2023-09-10] MEDS: 0.9 % Sodium Chloride 1,000 ML 999 ML IV (02:41)
[2023-09-10] MEDS: Acetaminophen 325 MG TABLET 650 MG PO (02:42)
[2023-09-10] MEDS: ondansetron HCL 4 MG/2 ML VIAL IVPUSH (02:42)
--- NOTE | 2023-09-10 02:42 | ED_ITS ---
HPI - General Chief complaint: OB Stated complaint: 34 weeks /back pain Time Seen by Provider: 09/10/23 02:26 Source: patient and family Mode of arrival: ambulatory Limitations: no limitations History of Present Illness HPI Narrative: 22 yo female 34 weeks no issues this here with c/o lower having a sore throat yesterday and then around 9pm started with lower abdominal cramping coming in waves lasting a minute going to her back then she started with n/v but no diarrhea. No fevers. No vaginal bleeding and no gush of fluid. She has a planned in early October. Complaint: abdominal pain Onset (ago): hour(s) (9pm on Tuesday ) Pain Consistency: intermittent Location: pelvis Severity: moderate Quality: Cramping Radiation: other (low back) Relieving factors: none Exacerbating factors: none Associated symptoms: nausea, vomiting and other (sore throat) Vaginal discharge: none Vaginal bleeding: none Related Data Home Medications Medication Instructions Recorded Confirmed vits no.130-ferrous fum 1 tab PO DAILY 06/22/23 08/10/23 27 mg iron-folic acid 800 mcg tablet ( Vitamin) Allergies Allergy/AdvReac Type Severity Reaction Status Date / Time aspirin [ASA] Allergy Mild RASH Verified 08/10/23 16:08 Penicillins [PENICILLINS] Allergy Unknown RASH Verified 08/10/23 16:08 Review of Systems 2 Review of Systems: Constitutional : No Weight loss, No Fever, No Chills ENT/Mouth : pos sore throat, No Rhinorrhea Eyes: No Swelling, No Redness Cardiovascular : No Chest Pain, No SOB, NoEdema Respiratory : No Cough, No Sputum, No Wheezing Gastrointestinal : Positive Nausea, Positive Vomiting, no Diarrhea, positive abdominal Pain, No Hematochezia, No Melena Genitourinary : No Dysuria, No Urinary Frequency, No Hematuria, No Urgency Musculoskeletal : No joint pain, No Myalgias, No Joint Swelling, pos back pain Skin : No Skin Lesions, No rash Neuro : No Weakness, No Numbness, No Dizziness, No Headache Psych : No Anxiety/Panic, No Depression Heme/Lymph: No Bruising, No Lymphadenopathy Endocrine : No Polyuria, No Polydipsia All other systems reviewed and are negative. [facility] Past Medical History Medical History section wound complication Social History Social History Housing: Apartment Alcohol intake: never Patient Tobacco Use Status: Never used Tobacco Smoked in Last 30 Days: No e-Cigarette/Vaping Use: Never Used Use of substances other than those prescribed or required for medical reasons: No Substance Use Type: Marijuana Advance Directives: No Advance Directives Information Provided: No Patient : Yes service: No Current occupational status: unemployed Cognitive needs: No Hearing needs: No Vision needs: No Physical Exam 2 Vital Signs: Vital Signs: Last Vital Signs Temp 98.2 F 09/10/23 02:22 Pulse 108 H 09/10/23 03:53 Resp 19 09/10/23 03:53 BP 100/54 L 09/10/23 03:53 Pulse Ox 97 09/10/23 03:53 O2 Del Method Room Air 09/10/23 03:53 BMI result Body Mass Index 38.9 Appearance: Alert. Oriented X3. No acute distress. Eyes: Pupils equal, round and reactive to light. ENT: Pharynx normal. Neck: Normal inspection. Neck supple. CVS: tachycardic heart rate and rhythm. Pulses normal. Respiratory: No respiratory distress. Breath sounds normal. Abdomen: Soft and nontender. Gravid uterus Skin: Skin warm and dry. Normal skin color. Normal skin turgor. Extremities: No lower extremity edema. No calf ttp Neuro: Oriented X 3. No motor deficit. No sensory deficit. Course Course Course Narrative: call to [facility] accepted [facility] under Dr. Cobb Reevaluation(s) Reevaluation #1: transfer center is going to update [facility] provider about UA results. Medications Administered Discontinued Medications Generic Name Dose Route Start Last Admin Trade Name Freq PRN Reason Stop Dose Admin Acetaminophen 650 mg 09/10/23 02:38 09/10/23 02:42 Acetaminophen 325 Mg Tablet PO 09/10/23 02:39 650 mg ONCE ONE Administration Sodium Chloride 1,000 mls @ 999 mls/hr 09/10/23 02:45 09/10/23 03:40 Ns IV 09/10/23 03:45 Infused .Q1H1M PARUL Infusion Ondansetron HCl 4 mg 09/10/23 02:32 09/10/23 02:42 Ondansetron Hcl 4 Mg/2 Ml Vial IVPUSH 09/10/23 02:33 4 mg ONCE ONE Administration Medical Decision Making Medical Decision Making [facility] Narrative: 22 yo female states she is 34 weeks no issues this only on due to deliver via c section in October at [facility] - she comes in had a sore throat yesterday was cleaning then around 9pm started with lower abdominal cramping into back then n/v. She doesn't feel well no one else is sick at home and she doesn't fell good. No fevers, no vaginal bleeding, no gush of fluid - at this time IVF, anti-emetic, tylenol, UA, basic labs, bedside US confirms head is down, FHT 156, patient is tachycardic but denies CP/SOB. her BP is normal and no edema of legs. Will consult her OBGYN given symptoms and our lack of ability with OB care. Planned transfer patient aware. Differential Diagnosis Differential Diagnoses: The differential diagnosis associated with the presentation includes viral syndrome, dehydration, UTI, contractions Admission/Observation Consideration of admission/observation: Escalation of care including admission/observation considered transfer to [facility] Consult Healthcare Provider Management of the patient was discussed with: Senior Client Advisor (covering OB) Lab Data [facility] Lab Attestation statement: I reviewed the patient's lab results. 09/10/23 02:39 09/10/23 02:39 Labs: Lab Results 09/10/23 09/10/23 09/10/23 Range/Units 02:30 02:39 03:26 WBC 8.5 (4.8-10.8) X10*3/uL RBC 4.10 L (4.20-5.50) X10*6/uL Hgb 11.3 L (12.0-16.0) g/dl Hct 34.3 L (37.0-47.0) % MCV 83.7 (80.0-98.0) fL MCH 27.6 (27.0-33.0) pg MCHC 32.9 (31.0-35.0) g/dl RDW 14.2 (11.0-16.0) % Plt Count 259 (160-400) X10*3/uL MPV 9.7 (9.4-12.3) fL Immature Gran % (Auto) 0.6 H (0.0-0.4) % Neut % (Auto) 74.1 H (45-73) % Lymph % (Auto) 11.6 L (20-40) % [place] % (Auto) 11.2 H (2-11) % Eos % (Auto) 2.1 (0-4) % Baso % (Auto) 0.4 (0-2) % Lymph # (Auto) 1.0 L (1.2-4.9) X10*3/uL [place] # (Auto) 1.0 (0.1-1.2) X10*3/uL Eos # (Auto) 0.2 (0.0-0.4) X10*3/uL Baso # (Auto) 0.0 (0.0-0.2) X10*3/uL Abs Immat Gran (auto) 0.05 H (0.00-0.03) X10*3/uL Absolute Neuts (auto) 6.3 (2.0-8.3) x10*3/uL Absolute Nucleated RBC 0.000 (0.0-0.012) X10*3/uL Nucleated RBC % (auto) 0.0 (0.0-0.2) /100WBC Sodium 137 (135-145) mmol/L Potassium 3.5 (3.3-5.1) mmol/L Chloride 107 (96-108) mmol/L Carbon Dioxide 20 L (22-29) mmol/L Anion Gap 14 (12-20) BUN 6 L (9-16) mg/dL Creatinine 0.57 (0.5-1.4) mg/dL Estim Creat Clear Calc 160.1 Estimated GFR > 60 Random Glucose 101 (60-115) mg/dL Calcium 8.5 (8.4-10.2) mg/dL Total Bilirubin 0.3 (0.0-1.0) mg/dL Direct Bilirubin 0.1 (0.0-0.5) mg/dL AST 16 (5-31) U/L ALT 14 (0-31) U/L Alkaline Phosphatase 126 H (39-117) U/L Total Protein 6.6 (6.5-8.0) g/dL Albumin 3.3 L (3.5-5.0) g/dL Lipase 14 (8-78) U/L Urine Color Yellow Urine Appearance Cloudy Urine pH 7.5 (5.0-9.0) Ur Specific [place] <= 1.005 (1.005-1.025) Urine Protein Negative (Neg-Trace) mg/dL Urine Glucose (UA) Negative (Negative) mg/dL Urine Ketones 40 (Negative) mg/dL Urine Blood Negative (Negative) Urine Nitrite Negative (Negative) Ur Leukocyte Esterase Large (3+) H (Negative) Urine RBC 0-2 (0-2) /HPF Urine WBC >50 H (0-5) /HPF Ur Squamous Epith Cells >20 (0-2) /HPF Urine Bacteria 4+ (None Seen) Hyaline Casts 0-2 (0-2) /LPF COVID-19 (KIKI) Negative (Negative) COVID-19 Clin Com See Note Influenza Type A (CHELSY) Negative (Negative) Influenza Type B (CHELSY) Negative (Negative) Influenza A & B Note See Note Independent Interpretation I performed an independent interpretation of an: EKG Interpretation: Rate: 127 Rhythm: sinus tachycardia [place]: normal Normal P waves. Normal LUIS. Normal QRS complex. ST T wave : normal no SHAHLA qTC: 433 prior studies: no acute ischemia The study has been interpreted contemporaneously by me. . Independent Historian Clinical information obtained from an independent historian. History obtained from or confirmed by: Spouse Procedures Procedure Narrative Procedure Narrative: +FH activity on bedside US, head is down Discharge Plan Discharge Clinical Impression: Bilateral lower abdominal cramping, Tachycardia Patient Disposition: Xfer Acute Care Hospital Transfer Details: [facility] Prescriptions: No Action Vitamin 27 mg iron- 800 mcg tablet 1 tab PO DAILY Interventions: Acute Care Transfer Worksheet (ED) Last Done: 09/10/23 05:01
[2023-09-10 02:43] LABS: MANUAL DIFF FLAG NO
[2023-09-10 02:47] LABS: Basophils Percent Auto 0.4 % (0-2); Eosinophils Absolute Auto 0.2 X10*3/uL (0.0-0.4); Eosinophils Percent Auto 2.1 % (0-4); Hematocrit 34.3 % (37.0-47.0); Hemoglobin 11.3 g/dl (12.0-16.0); Imm Gran Abs Auto 0.05 X10*3/uL (0.00-0.03); Imm Gran Pct Auto 0.6 % (0.0-0.4); Lymphocytes Percent Auto 11.6 % (20-40); Mean Corpuscular HGB Conc 32.9 g/dl (31.0-35.0); Mean Corpuscular Hemoglobin 27.6 pg (27.0-33.0); Mean Corpuscular Volume 83.7 fL (80.0-98.0); Mean Platelet Volume 9.7 fL (9.4-12.3); Monocytes Percent Auto 11.2 % (2-11); Neutrophils Absolute Auto 6.3 x10*3/uL (2.0-8.3); Neutrophils Percent Auto 74.1 % (45-73); Platelet Count 259 X10*3/uL (160-400); Red Cell Distribution Width 14.2 % (11.0-16.0); White Blood Count 8.5 X10*3/uL (4.8-10.8)
[2023-09-10 02:52] LABS: COVID-19 Test Negative (Negative); IDNOW Serial# 08D9AD1C; IDNOW Serial# 152EDE1D; Influenza A Negative (Negative); Influenza B2 Negative (Negative)
[2023-09-10 02:58] LABS: Alanine Aminotransferase 14 U/L (0-31); Albumin Level 3.3 g/dL (3.5-5.0); Alkaline Phosphatase 126 U/L (39-117); Anion Gap 14 (12-20); Aspartate Amino Transferase 16 U/L (5-31); Bilirubin Direct 0.1 mg/dL (0.0-0.5); Bilirubin Total 0.3 mg/dL (0.0-1.0); Blood Urea Nitrogen 6 mg/dL (9-16); Calcium 8.5 mg/dL (8.4-10.2); Carbon Dioxide 20 mmol/L (22-29); Chloride 107 mmol/L (96-108); Creatinine Clr Calc Pharmacy 160.1; Estimated Glomerular Filt Rate > 60; Glucose Random 101 mg/dL (60-115); Lipase 14 U/L (8-78); Potassium 3.5 mmol/L (3.3-5.1); Sodium 137 mmol/L (135-145); Total Protein 6.6 g/dL (6.5-8.0)
[2023-09-10 03:38] LABS: Appearance Urine Cloudy; Color Urine Yellow; Glucose Urine UA Negative (Negative); Leukocyte Esterase Urine Large (3+) (Negative); Nitrite Urine Negative (Negative); PH 7.5 (5.0-9.0); Specific Gravity - Urine <= 1.005 (1.005-1.025); UMIC TRIGGER UACC YES; Urine Blood Negative (Negative); Urine Ketones 40 mg/dL (Negative); Urine Protein Negative (Neg-Trace)
[2023-09-10 03:53] VITALS: BP 100/54; PULSE 108; RESP 19; O2SAT 97
[2023-09-10 03:57] LABS: Bacteria Urine 4+ (None Seen); Hyaline Casts Urine 0-2 /LPF (0-2); RBC Urine 0-2 /HPF (0-2); Squamous Epithelial Cell Urine >20 /HPF (0-2); UACC Culture Trigger YES; WBC Urine >50 /HPF (0-5)
--- NOTE | 2023-09-10 04:44 | PC.NURSE ---
Pt to be transported to [facility] for further eval. Pt resting comfortably on stretcher, ambulates with steady gait to and from bathroom. Pain controlled, pt not vomiting. This RN called [facility] for nurse to nurse report. Waiting for ambulance transport to facility.
== END 2023-09-10 05:15 | disposition short-term general hospital (02) ==
PROVIDERS: Emergency Provider Emergency Medicine; PCP Physician Assistant
DX: O26.893 Other specified pregnancy related conditions, third trimester (principal); R10.30 Lower abdominal pain, unspecified; O99.891 Other specified diseases and conditions complicating pregnancy; R00.0 Tachycardia, unspecified; O98.513 Other viral diseases complicating pregnancy, third trimester; J02.9 Acute pharyngitis, unspecified; Z3A.34 34 weeks gestation of pregnancy; Z11.52 Encounter for screening for COVID-19
CPT/HCPCS: 36415; 80048; 80076; 81001; 83690; 85025; 87086; 87502; 87635; 93005; 96361; 96374; 99285; J2405

== ENCOUNTER → 2023-09-10 02:38 | Outpatient (BNV) | payer OTHER, SELFPAY | PROVIDERS: Emergency Provider Emergency Medicine; PCP Physician Assistant; Visit Provider Internal Medicine Cardiovascular Disease | DX: R00.0 Tachycardia, unspecified (principal) | CPT/HCPCS: 93010 ==

== ENCOUNTER 2024-03-27 08:32 | Emergency (ER) | payer OTHER, SELFPAY ==
[2024-03-27] VITALS (7 sets, daily range): BP systolic 102–122; BP diastolic 53–83; PULSE 97–129; RESP 11–19; TEMP 37–37.1; O2SAT 96–99; BMI 37.1
--- NOTE | ~2024-03-27 | XR_ITS ---
EXAMINATION: XR CHEST CLINICAL INFORMATION: Cough. Chest tightness. COMPARISON: Most recent chest radiograph dated 11/25/2021. TECHNIQUE: PA and lateral views of the chest. FINDINGS: The lungs are clear. The cardiomediastinal silhouette is normal in size. There is no pleural effusion or pneumothorax. No acute osseous abnormality. XR/XR chest 2V IMPRESSION: No acute cardiopulmonary findings. Electronically signed by: Carter Daley MD 03/27/2024 11:22 AM EDT
--- NOTE | 2024-03-27 08:40 | ECG_ITS ---
Test Reason : cp Blood Pressure : / mmHG Vent. Rate : 121 BPM Atrial Rate : 121 BPM P-R Int : 138 ms QRS Dur : 068 ms QT Int : 312 ms P-R-T Axes : 062 048 042 degrees QTc Int : 443 ms Sinus tachycardia Otherwise normal ECG When compared with ECG of 10-SEP-2023 02:43, No significant change was found Referred By: Generic ED Physician Electronically Signed By:ARIANNE AGUILAR
[2024-03-27 09:00] LABS: MANUAL DIFF FLAG NO
[2024-03-27 09:01] LABS: Basophils Absolute Auto 0.1 X10*3/uL (0.0-0.2); Basophils Percent Auto 0.6 % (0-2); Eosinophils Absolute Auto 0.1 X10*3/uL (0.0-0.4); Eosinophils Percent Auto 1.5 % (0-4); Hemoglobin 12.9 g/dl (12.0-16.0); Imm Gran Abs Auto 0.02 X10*3/uL (0.00-0.03); Imm Gran Pct Auto 0.2 % (0.0-0.4); Lymphocytes Absolute Auto 0.8 X10*3/uL (1.2-4.9); Lymphocytes Percent Auto 9.7 % (20-40); Mean Corpuscular HGB Conc 33.1 g/dl (31.0-35.0); Mean Corpuscular Hemoglobin 27.7 pg (27.0-33.0); Mean Corpuscular Volume 83.9 fL (80.0-98.0); Mean Platelet Volume 9.1 fL (9.4-12.3); Monocytes Absolute Auto 0.8 X10*3/uL (0.1-1.2); Monocytes Percent Auto 9.9 % (2-11); Neutrophils Absolute Auto 6.6 x10*3/uL (2.0-8.3); Neutrophils Percent Auto 78.1 % (45-73); Platelet Count 378 X10*3/uL (160-400); Red Blood Count 4.65 X10*6/uL (4.20-5.50); Red Cell Distribution Width 13.4 % (11.0-16.0); White Blood Count 8.4 X10*3/uL (4.8-10.8)
[2024-03-27 09:03] LABS: Appearance Urine Clear; Color Urine Yellow; Glucose Urine UA Negative (Negative); Leukocyte Esterase Urine Trace (Negative); Nitrite Urine Negative (Negative); Specific Gravity - Urine 1.025 (1.005-1.025); UMIC TRIGGER UACC YES; Urine Blood Negative (Negative); Urine Ketones Negative (Negative); Urine Protein Negative (Neg-Trace)
[2024-03-27 09:04] LABS: UPreg QC Valid YES; Urine Pregnancy NEGATIVE (NEGATIVE)
[2024-03-27 09:05] LABS: Bacteria Urine Trace (None Seen); Hyaline Casts Urine 0-2 /LPF (0-2); RBC Urine 0-2 /HPF (0-2); WBC Urine 0-5 /HPF (0-5)
[2024-03-27 09:09] LABS: COVID-19 Test Positive (Negative); IDNOW Serial# 152EDE1D
[2024-03-27 09:14] LABS: Anion Gap 13 (12-20); Blood Urea Nitrogen 14 mg/dL (9-16); Calcium 9.3 mg/dL (8.4-10.2); Carbon Dioxide 23 mmol/L (22-29); Chloride 105 mmol/L (96-108); Creatinine Clr Calc Pharmacy 117.4; Estimated Glomerular Filt Rate > 60; Glucose Random 109 mg/dL (60-115); Potassium 3.9 mmol/L (3.3-5.1); Sodium 137 mmol/L (135-145)
--- NOTE | 2024-03-27 10:35 | ED_ITS ---
HPI - General Adult General Chief complaint: Upper Respiratory Symptoms Stated complaint: Chest pain, vomiting Time Seen by Provider: 03/27/24 10:21 Source: patient Mode of arrival: ambulatory Limitations: no limitations History of Present Illness ED Provider: DR. Mabry HPI narrative: 23-year-old female came in for evaluation of generalized body ache, feeling weak, fever, chills, coughing, nausea, vomiting, abdominal pain, headache and chest pain. Son was sick with COVID 2 days ago, patient's symptoms started since this morning. Related Data Home Medications ?Medication ?Instructions ?Recorded ?Confirmed vits no.130-ferrous fum 1 tab PO DAILY 06/22/23 08/10/23 27 mg iron-folic acid 800 mcg tablet ( Vitamin) Previous Rx's ?Medication ?Instructions ?Recorded oseltamivir 75 mg capsule (Tamiflu) 75 mg PO BID 5 days #10 caps 09/11/23 Allergies Allergy/AdvReac Type Severity Reaction Status Date / Time aspirin [ASA] Allergy Mild RASH Verified 03/27/24 08:44 Penicillins [PENICILLINS] Allergy Unknown RASH Verified 03/27/24 08:44 Review of Systems 2 Review of Systems: All other systems are reviewed and are negative Constitutional: Reports as per HPI and Reports no additional constitutional complaints Eyes: Reports as per HPI and Reports no additional eye complaints Reports system reviewed and no additional complaints, except as documented Cardiovascular: Reports as per HPI and Reports no additional cardiovascular complaints Respiratory: Reports as per HPI and Reports no additional respiratory complaints Gastrointestinal: Reports as per HPI and Reports no additional gastrointestinal complaints Genitourinary: Reports no additional female genitourinary complaints Musculoskeletal: Reports no additional musculoskeletal complaints Skin/Breast: Reports system reviewed and no additional complaints, except as docu Psychiatric: Reports no additional psychiatric complaints Endocrine: Reports no additional endocrine complaints Hematologic/Lymphatic: Reports no additional hematologic/lymphatic complaints Allergic/Immunologic: Reports no additional allergic/immunologic complaints Reports system reviewed and no additional complaints, except as documented and Reports Abnormal speech present [facility] Past Medical History Medical History section wound complication Social History Social History Housing: Apartment Alcohol intake: never Patient Tobacco Use Status: Never used Tobacco Smoked in Last 30 Days: No e-Cigarette/Vaping Use: Never Used Use of substances other than those prescribed or required for medical reasons: No Substance Use Type: Marijuana Advance Directives: No Advance Directives Information Provided: No Patient : No service: No Current occupational status: unemployed Cognitive needs: No Hearing needs: No Vision needs: No Physical Exam ED Vital Signs: Vital Signs - 24 hr 03/27/24 08:41 03/27/24 09:22 03/27/24 10:28 Temperature 98.7 F 98.6 F Pulse Rate 129 H 115 H Respiratory Rate 18 19 Blood Pressure 119/79 122/83 Pulse Oximetry 97 96 98 Oxygen Delivery Method Room Air Room Air Room Air 03/27/24 12:05 03/27/24 13:42 03/27/24 15:18 Temperature 98.6 F 98.8 F Pulse Rate 97 109 H 102 H Respiratory Rate 11 L 18 17 Blood Pressure 112/65 102/53 L 106/53 L Pulse Oximetry 99 98 98 Oxygen Delivery Method Room Air Room Air Room Air BMI result Body Mass Index 37.1 Vital signs have been reviewed and appear to be correct. Blood pressure elevated. Heart rate normal. Respiratory rate normal. Temperature normal. Oxygen saturation normal. Appearance: Alert. Oriented X3. No acute distress. Head: Normal external exam. Normocephalic. Atraumatic. No Garcia signs noted. No raccoon eyes noted Eyes: PERRLA. EOMI. Conjunctiva and sclera normal. Eyelids normal. ENT: TM's Normal. Pharynx normal. Uvula midline. Moist mucous membranes. No trismus noted. No drooling noted. No muffled voice noted. Neck: Normal inspection. Neck supple. FROM. No adenopathy. Thyroid Normal. No meningeal signs. No neck mass noted. CVS: Normal heart rate and rhythm. Heart sound normal. No murmurs noted. Pulses normal throughout. Respiratory: No respiratory distress. Painless inspiration. Breath sounds normal. No wheezes/rales/rhonchi noted. Chest nontender. No accessory muscle usage noted or decreased air movement noted. Abdomen: Soft and nontender. Bowel sounds normal in all 4 quadrants. No distention noted. No organomegaly noted. No visible injury noted. Back: No CVA tenderness. Full range of motion noted. Skin: Skin warm and dry. Normal skin color. Normal skin turgor. No rashes/lesions/lacerations noted. Extremities: No lower extremity edema. Extremities exhibit normal range of motion. Extremities nontender. Neuro: Oriented X 3. Cranial nerve exam: II-XII are grossly intact No motor deficit. No sensory deficit. Reflexes normal. Course Reevaluation(s) Reevaluation #1: Received IV fluids feels better, confirmed COVID positive, negative chest x-ray for intrathoracic pathology, O2 sat is stable. Heart rate improved after IV hydration and patient tolerated p.o. in in the ED feels better with improvement of the headache and abdominal pain. Instructed to do frequent hand washing, where face mask at all times, self isolate and keep social distance. Instructed to seek immediate medical attention for SOB or worsening of symptoms. There is a delay radiology reading for x-rays to my own reading no acute intrathoracic pathology. Time: 15:00 Medications Administered Discontinued Medications Generic Name Dose Route Start Last Admin Trade Name Freq PRN Reason Stop Dose Admin Acetaminophen 650 mg 03/27/24 10:34 03/27/24 10:45 Acetaminophen 325 Mg Tablet PO 03/27/24 10:35 650 mg ONCE ONE Administration Famotidine 20 mg 03/27/24 10:33 03/27/24 10:45 Famotidine/Pf 20 Mg/2 Ml Vial IVPUSH 03/27/24 10:34 20 mg ONCE ONE Administration Sodium Chloride 1,000 mls @ 999 mls/hr 03/27/24 10:33 03/27/24 11:48 Ns IV 03/27/24 11:33 Infused .Q1H1M ONE Infusion Ondansetron HCl 4 mg 03/27/24 10:33 03/27/24 10:45 Ondansetron Hcl 4 Mg/2 Ml Vial IVPUSH 03/27/24 10:34 4 mg ONCE ONE Administration Medical Decision Making Differential Diagnosis Differential Diagnoses: The differential diagnosis associated with the presentation includes (Pneumonia, pneumothorax, pleural effusion, a viral pneumonia, bronchitis, pharyngitis, viral syndrome, dehydration, electrolyte derangement, severe anemia, UTI, .) Admission/Observation Consideration of admission/observation: Escalation of care including admission/observation considered Lab Data MDM Lab Attestation statement: I reviewed the patient's lab results. 03/27/24 08:55 03/27/24 08:55 Labs: Lab Results 03/27/24 03/27/24 Range/Units 08:55 08:56 WBC 8.4 (4.8-10.8) X10*3/uL RBC 4.65 (4.20-5.50) X10*6/uL Hgb 12.9 (12.0-16.0) g/dl Hct 39.0 (37.0-47.0) % MCV 83.9 (80.0-98.0) fL MCH 27.7 (27.0-33.0) pg MCHC 33.1 (31.0-35.0) g/dl RDW 13.4 (11.0-16.0) % Plt Count 378 D (160-400) X10*3/uL MPV 9.1 L (9.4-12.3) fL Immature Gran % (Auto) 0.2 (0.0-0.4) % Neut % (Auto) 78.1 H (45-73) % Lymph % (Auto) 9.7 L (20-40) % [place] % (Auto) 9.9 (2-11) % Eos % (Auto) 1.5 (0-4) % Baso % (Auto) 0.6 (0-2) % Lymph # (Auto) 0.8 L (1.2-4.9) X10*3/uL [place] # (Auto) 0.8 (0.1-1.2) X10*3/uL Eos # (Auto) 0.1 (0.0-0.4) X10*3/uL Baso # (Auto) 0.1 (0.0-0.2) X10*3/uL Abs Immat Gran (auto) 0.02 (0.00-0.03) X10*3/uL Absolute Neuts (auto) 6.6 (2.0-8.3) x10*3/uL Absolute Nucleated RBC 0.000 (0.0-0.012) X10*3/uL Nucleated RBC % (auto) 0.0 (0.0-0.2) /100WBC Sodium 137 (135-145) mmol/L Potassium 3.9 (3.3-5.1) mmol/L Chloride 105 (96-108) mmol/L Carbon Dioxide 23 (22-29) mmol/L Anion Gap 13 (12-20) BUN 14 (9-16) mg/dL Creatinine 0.75 (0.5-1.4) mg/dL Estim Creat Clear Calc 117.4 Estimated GFR > 60 Random Glucose 109 (60-115) mg/dL Calcium 9.3 D (8.4-10.2) mg/dL Urine Color Yellow Urine Appearance Clear Urine pH 7.0 (5.0-9.0) Ur Specific [place] 1.025 (1.005-1.025) Urine Protein Negative (Neg-Trace) mg/dL Urine Glucose (UA) Negative (Negative) mg/dL Urine Ketones Negative (Negative) mg/dL Urine Blood Negative (Negative) Urine Nitrite Negative (Negative) Ur Leukocyte Esterase Trace H (Negative) Urine RBC 0-2 (0-2) /HPF Urine WBC 0-5 (0-5) /HPF Ur Squamous Epith Cells 3-5 (0-2) /HPF Urine Bacteria Trace (None Seen) Hyaline Casts 0-2 (0-2) /LPF Urine Test NEGATIVE (NEGATIVE) COVID-19 (KIKI) Positive A (Negative) COVID-19 Clin Com See Note Independent Interpretation I performed an independent interpretation of an: Plain X-Ray (Chest: No acute intrathoracic pathology.) Discharge Plan Discharge Clinical Impression: COVID-19 Patient Disposition: Home, Self-Care Instructions: COVID-19 (Coronavirus Disease 2019) (ED) Additional Instructions: Drink plenty fluids take ibuprofen 200 mg or Tylenol 500 mg [id number] every 6 hours if needed for body ache or fever, wear face mask at all times, keep social distancing, self quarantine for 5 days, seek immediate medical attention for shortness of breath/CP. Prescriptions: No Action oseltamivir [Tamiflu] 75 mg capsule 75 mg PO BID 5 Days Qty: 10 0RF Vitamin 27 mg iron- 800 mcg tablet 1 tab PO DAILY Stand Alone Forms: Work/School Release Print Language: Japanese
[2024-03-27] MEDS: Famotidine/PF 20 MG/2 ML VIAL IVPUSH (10:45)
[2024-03-27] MEDS: ondansetron HCL 4 MG/2 ML VIAL IVPUSH (10:45)
[2024-03-27] MEDS: Acetaminophen 325 MG TABLET 650 MG PO (10:45)
[2024-03-27] MEDS: 0.9 % Sodium Chloride 1,000 ML 999 ML IV (10:46)
--- NOTE | 2024-03-27 10:48 | PC.NURSE ---
20g IV placed in the left AC - IVF/medication administered per provider order. effectiveness pending.
== END 2024-03-27 15:48 | disposition home or self-care (01) ==
PROVIDERS: Emergency Provider Emergency Medicine
DX: R07.89 Other chest pain (principal); R11.2 Nausea with vomiting, unspecified; M79.10 Myalgia, unspecified site; R05.9 Cough, unspecified; Z79.899 Other long term (current) drug therapy; Z11.52 Encounter for screening for COVID-19
CPT/HCPCS: 71046; 80048; 81001; 81003; 81025; 85025; 87635; 93005; 96361; 96374; 96375; 99284; 99285; J2405

== ENCOUNTER 2024-07-01 04:28 | Emergency (ER) | payer OTHER, SELFPAY ==
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
[2024-07-01 04:51] VITALS: PULSE 103; RESP 16; TEMP 36.6; O2SAT 99; BMI 37.6
[2024-07-01 06:16] VITALS: BP 114/76; PULSE 96; RESP 16; TEMP 36.6; O2SAT 97
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
--- NOTE | 2024-07-01 06:55 | PC.NURSE ---
report given to Marga PRIETO
--- NOTE | 2024-07-01 07:18 | PC.NURSE ---
pt to CT at this time.
[2024-07-01] MEDS: Acetaminophen 325 MG TABLET 975 MG PO (07:32)
[2024-07-01] MEDS: Cyclobenzaprine HCl 10 MG TABLET PO (07:33)
[2024-07-01] MEDS: Ondansetron ODT 4 MG TAB.RAPDIS TRANSLINGU (07:33)
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
[2024-07-01 08:00] VITALS: BP 116/63; PULSE 110; RESP 16; TEMP 36.6; O2SAT 100
--- NOTE | 2024-07-01 08:40 | PC.NURSE ---
pt verbalizing pain subsided s/p medication administration. respirations remain even/labored. waiting for CT results. plan of care ongoing.
[2024-07-01 10:04] VITALS: BP 116/63; PULSE 110; RESP 16; TEMP 36.6; O2SAT 100
== END 2024-07-01 10:04 | disposition home or self-care (01) ==
PROVIDERS: Emergency Provider Emergency Medicine; PCP Physician Assistant
DX: S06.0X0A Concussion without loss of consciousness, initial encounter (principal); S16.1XXA Strain of muscle, fascia and tendon at neck level, initial encounter; S80.02XA Contusion of left knee, initial encounter; M54.2 Cervicalgia; R51.9 Headache, unspecified; R11.2 Nausea with vomiting, unspecified; M54.6 Pain in thoracic spine; Y04.2XXA Assault by strike against or bumped into by another person, initial encounter; Y93.89 Activity, other specified; Y92.89 Other specified places as the place of occurrence of the external cause; Y99.8 Other external cause status
CPT/HCPCS: 70450; 70486; 72072; 72125; 73564; 99284

== ENCOUNTER 2024-11-14 14:19 | Outpatient (AMB) | payer OTHER, SELFPAY ==
[2024-11-14 14:38] VITALS: PULSE 100; RESP 15; TEMP 36.2; O2SAT 100; BMI 38.2
--- NOTE | 2024-11-14 14:38 | A.OFFPC_ITS ---
Vital Signs 11/14/24 14:38 Height 5 ft 1 in Weight 202 lb BMI 38.2 Blood Pressure Location Lt brachial Position Sitting Respiration 15 Pulse 100 Pulse Source Pulse Oximeter Temp 97.1 F Temp Source Temporal Artery Scan Pulse Oximetry (%) 100 Oxygen Delivery Method Room Air Intake Visit Reasons: annual exam/pain management referral Airline Radio Operator Required: No Accompanied by: Self / Same As Patient Allergies aspirin [ASA] Allergy (Mild, Verified 11/14/24 14:59) RASH Penicillins [PENICILLINS] Allergy (Unknown, Verified 11/14/24 14:59) RASH Medication List - Last Reconciled 11/14/24 by Jackson Patricio PA-C No Known Home Meds Tobacco use date assessed: 11/14/24 Dental Screening Dental Screen Date: 11/14/24 Did you have a dental visit in the last 12 months?: No Did you have a dental problem in the last 6 months where you did not have access to dental care?: Yes Was dental information given to patient?: Yes HPI annual exam/pain management referral HPI Details Patient is a 24-year-old female here today for annual physical. Patient has a past medical history significant for obesity and scoliosis. Scoliosis -was diagnosed as a child with a mild scoliosis. Has never needed surgery. Her scoliosis-related back pain has become worse as of lately. The patient reports a history of scoliosis diagnosed in adolescence during a pediatric evaluation. Although initially mild, the scoliosis has worsened over time, leading to daily pain upon waking and difficulty sleeping. 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 .. Class 2 obesity: Patient does understand her BMI is over 30 and will work on being more physically active and adapting to better eating habits to reduce her weight. She is interested in an appetite suppressant to help her kick start weight loss. 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 1. Little interest or pleasure in doing things: not at all 2. Feeling down, depressed, or hopeless: not at all 3. Trouble falling or staying asleep, or sleeping too much: not at all 4. Feeling tired or having little energy: not at all 5. Poor appetite or overeating: not at all 6. Feeling bad about yourself - or that you are a failure or have let yourself or your family down: not at all 7. Trouble concentrating on things, such as reading the newspaper or watching television: not at all 8. Moving or speaking so slowly that other people could have noticed. Or the opposite - being so fidgety or restless that you have been moving around a lot more than usual: not at all 9. Thoughts that you would be better off or of hurting yourself in some way: not at all Total score: 0 Depression Screening Interpretation: Negative Depression Screening Done: Yes 07077 - PHQ-9 Billing: Yes Source: Developed by Drs. Mukul Bach, Marge Doty, Luke Enriquez and colleagues, with an educational betsy from [employer]. Thrive Questionnaire Date Thrive assessed: 11/14/24 I am a: Patient What is your living situation today?: I have a steady place to live Within the past 12 months, did the food you bought not last and you didn't have the money to get more?: Never true Within the past 12 months, did you worry whether your food would run out before you got money to buy more?: Never true Do you have trouble paying for medicines?: No Do you have trouble getting transportation to medical appointments?: No Do you have trouble paying your heating and electricity bill?: No Do you have trouble taking care of your child, family member or friend?: No Do you have trouble with day-to-day activities such as bathing, preparing meals, shopping, managing finances, etc.?: No Are you currently unemployed and looking for a job?: No Are you interested in more education?: No Please select the resources that you would like help with: None Currently or been in a relationship where the following occur: No concerns reported THRIVE Score: 0 AUDIT C Alcohol Use Questionnaire (AUDIT-C) 1. How often do you have a drink containing alcohol?: Never 3. How often do you have six or more drinks on one occasion?: Never Total Score: 0 Score Reviewed/Action Taken: Yes IZABEL-7 AMB Questionnaire IZABEL-7 Date IZABEL - 7 assessed: 11/14/24 Feeling nervous, anxious, or on edge: 0 = Not at all Not being able to stop or control worryin = Not at all Worrying too much about different things: 0 = Not at all Trouble relaxin = Not at all Being so restless that it is hard to sit still: 0 = Not at all Becoming easily annoyed or irritable: 0 = Not at all Feeling afraid as if something awful might happen: 0 = Not at all Total IZABEL-7 score (0-4 normal; 5-9 mild; 10-14 moderate; 15-21 severe): 0 Source: Developed by Drs. Mukul Bach, Marge Doty, Luke Enriquez and colleagues, with an educational betsy from [employer]. IZABEL-7 Assessment Billing IZABEL-7 Assessment Tool: IZABEL-7 Assessment 05856 Review of Systems Const Denies body aches, Denies chills, Denies excessive sweating, Denies fatigue, Denies fever(s) and Denies headache(s) Eyes Denies blurry vision ENT Denies dysphagia, Denies vertigo, Denies dizziness, Denies headache(s), Denies hearing loss and Denies tinnitus Card Denies chest pain, Denies chest pain with activity, Denies syncope, Denies irregular heart rhythm and Denies dyspnea Resp Denies chest congestion, Denies cough, Denies hemoptysis, Denies dyspnea and Denies wheezing GI Denies abdominal pain, Denies melena, Denies hematochezia, Denies coffee ground emesis, Denies dysphagia, Denies diarrhea, Denies nausea and Denies vomiting Denies urinary frequency, Denies dysuria, Denies urinary hesitancy and Denies urinary urgency Musc Denies arthralgias, Denies limited range of motion, Denies muscle cramps and Denies muscle weakness Skin/Breast Denies rash and Denies skin ulcer Neuro Denies Abnormal speech present, Denies confusion, Denies vertigo, Denies di zziness, Denies syncope, Denies headache(s), Denies memory loss and Denies seizure-like activity Psych Denies anxiety, Denies confusion, Denies depression, Denies memory loss, Denies panic attacks and Denies paranoia Endo Denies excessive sweating, Denies fatigue, Denies flushing, Denies polydipsia and Denies polyuria Aller/Immun Denies wheezing Physical exam (Primary Care) Vital Signs: Last Vital Signs Temp 97.1 F 11/14/24 14:38 Pulse 100 11/14/24 14:38 Resp 15 11/14/24 14:38 Pulse Ox 100 11/14/24 14:38 Oxygen Delivery Method Room Air 11/14/24 14:38 BMI result Body Mass Index 38.2 BMI Assessment/Plan discussion: High BMI High, discussed plan: lifestyle, weight reduction, dietary and physical activity Tobacco/Smoking Status: Tobacco use Status Tobacco use date assessed 11/14/24 11/14/24 14:44 Patient Tobacco Use Status Never used Tobacco 11/14/24 14:39 e-Cigarette/Vaping Use Never Used 11/14/24 14:39 PHQ-9: PHQ-9 Score PHQ-9: Total score 0 11/14/24 15:03 Depression Screening Interpretation: Negative Thrive Assessment: Date of Thrive Assessment Date Thrive assessed 11/14/24 11/14/24 14:46 Currently or been in a relationship where the following occur: No concerns reported Const Other: Obese General: cooperative, comfortable, no acute distress, alert and awake; No confusion Orientation/consciousness: oriented to person, oriented to place, patient oriented x3 and No confusion HENMT Head: Yes normocephalic Ears: external ears normal and TM's normal bilaterally Face and sinus: No sinus tenderness Mouth: Normal oral and palatal mucosa present and tongue normal Teeth and gingiva: dentition normal and gingiva normal Throat: Yes posterior oropharynx normal, Yes tonsils normal and Yes uvula midline Eyes Conjunctivae: conjunctivae normal Sclerae: sclerae normal Pupils: Equal, round and reactive pupils present EOM: EOMs intact bilaterally Direct Ophthalmoscopy: No no photophobia Neck Neck: Yes no lymphadenopathy, No tender and Yes no JVD Thyroid: Thyroid normal Carotids: no bruits Chest Chest palpation & inspection: no tenderness Resp Effort & Inspection: normal respiratory effort, no audible wheezes, not labored and no stridor Auscultation: no crackles, no rales, no rhonchi and no wheezes Cardio Jugular venous distension: no JVD Rate: regular rate, not bradycardic and not tachycardic Rhythm: regular rhythm Bruits: no carotid bruits Peripheral pulses: Peripheral pulses 2+ throughout GI Inspection: Yes normal to inspection, No abdominal wall ecchymosis and No visible herniation Palpation (GI): Soft to palpation, nontender, no guarding, not rigid and No hepatosplenomegaly present Auscultation: normoactive bowel sounds General: Yes no CVA tenderness Back/Spine/Pelvis Back: no CVA tenderness and No back tenderness Cervical Spine: cervical ROM normal Thoracic/Lumbar Spine: thoracic and lumbar spine normal to inspection, straight leg raise negative bilaterally, No thoraco-lumbar ROM limited and No lumbar spinal tenderness Skin Lesions: no lesions Rashes: no rashes Wounds: no wounds Neuro General: oriented to person, oriented to place, patient oriented x3, CN's II-XI intact bilaterally and No confusion Cranial nerves: Yes Equal, round and reactive pupils present and Yes Normal accommodation reflex present Cognition (Neuro): normal cognition Speech: No Abnormal speech present Gait exam (Neuro): Normal gait present Motor exam (neuro): 5/5 motor strength present throughout Extrem Right upper extremity: full ROM; no cyanosis Left upper extremity: full ROM; no cyanosis Right lower extremity: no edema Left lower extremity: no edema Psych Appearance: grossly normal Mental Status: mental status grossly normal Affect: normal affect Attitude: cooperative Thought process: Normal thought process present Coding Level of Care Code Est Pt Prev Care 18-39y(19598) Diagnoses Annual physical exam Z00.00 Other idiopathic scoliosis, cervicothoracic region M41.23 Scoliosis type: idiopathic Idiopathic scoliosis type: other Spinal region: cervicothoracic Class 2 obesity E66.812 Additional Codes IZABEL-7 Assessment Billing - IZABEL-7 Assessment Tool: IZABEL-7 Assessment 32942 ([id number]) PHQ-9 - 61522 - PHQ-9 Billing: Yes ([id number]) Assessment & Plan Assessment & Plan (1) Annual physical exam: Code(s): Z00.00 - Encounter for general adult medical examination without abnormal findings Category: Medical Plan: As per HPI (2) Scoliosis: Code(s): M41.9 - Scoliosis, unspecified Category: Medical Qualifiers: Scoliosis type: idiopathic Idiopathic scoliosis type: other Spinal region: cervicothoracic Qualified Code(s): M41.23 - Other idiopathic scoliosis, cervicothoracic region Plan: Plan: Ordered spine X-rays, referred for physical therapy, and discussed pain management including medications and topical alternatives. (3) Class 2 obesity: Code(s): E66.812 - Obesity, class 2 Category: Medical Plan: Patient does understand her BMI is over 35 and will work on being more physically active and adapt to better eating habits to reduce her weight. She is interested in trying a appetite suppressant medication to help her kick start weight loss thus will try phentermine Orders: Orders [facility] [place]. Panel Fast Today Z13.1 - Encounter for screening for diabetes mellitus XR thoracic spine 3V Today M41.23 - Other idiopathic scoliosis, cervicothoracic region PT Evaluation and Treatment Today M41.23 - Other idiopathic scoliosis, cervicothoracic region Complete Blood Count no Diff Today Z13.1 - Encounter for screening for diabetes mellitus XR cervical spine 3V Today M41.23 - Other idiopathic scoliosis, cervicothoracic region Medications: New baclofen 10 mg PO BEDTIME 30 days PRN 30 tabs 0RF muscle spasm M41.23 - Other idiopathic scoliosis, cervicothoracic region diclofenac sodium 75 mg PO BID 15 days PRN 30 tabs 1RF pain M41.23 - Other idiopathic scoliosis, cervicothoracic region phentermine must administer 30 minutes before or 1-2 hours after breakfast 37.5 mg PO DAILY 28 days 28 caps 0RF E66.812 - Obesity, class 2
--- OUTSIDE RECORDS SUMMARY | 2024-11-14 16:36 | XMS_ITS ---
Author Name [facility] Organization Unknown Care Team Organization Name Specialty Phone Email Start Date End Da te [facility] 07/27/2022 03/26/2024
== END 2024-11-14 15:27 | disposition home or self-care (01) ==
LOC: HO.HMCH 14:19
PROVIDERS: PCP Physician Assistant; Visit Provider Physician Assistant
DX: Z00.00 Encounter for general adult medical examination without abnormal findings (principal); M41.23 Other idiopathic scoliosis, cervicothoracic region; E66.812 Obesity, class 2; Z68.38 Body mass index [BMI] 38.0-38.9, adult

== ENCOUNTER → 2024-11-14 14:19 | Outpatient (BNVA) | payer OTHER, SELFPAY | PROVIDERS: PCP Physician Assistant; Visit Provider Physician Assistant | DX: Z00.00 Encounter for general adult medical examination without abnormal findings (principal); E66.812 Obesity, class 2; M41.23 Other idiopathic scoliosis, cervicothoracic region; Z68.30 Body mass index [BMI] 30.0-30.9, adult | CPT/HCPCS: 96127; 99395 ==

== ENCOUNTER 2024-11-19 08:41 | Outpatient (REF) | payer OTHER, SELFPAY ==
--- NOTE | ~2024-11-19 | XR_ITS ---
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 Findings: Normal vertebral body alignment. No fractures or dislocations. No significant degenerative changes . Prevertebral soft tissues normal. Lung apices are unremarkable. Impression: Normal cervical spine This document has been electronically signed by: Nick Valentin MD on 11/19/2024 19:29:01
--- NOTE | ~2024-11-19 | XR_ITS ---
CLINICAL HISTORY: M41.23 - Other idiopathic scoliosis, cervicothoracic region 3 views thoracic spine Comparison: None Findings: No fractures or dislocations. 5 degrees dorsal dextroscoliosis. Costovertebral joints and pedicles are normal. No vertebral anomalies. Uncovertebral joints and facet joints are normal. Normal vertebral body alignment. No significant arthritic change. Impression: Unremarkable thoracic spine. This document has been electronically signed by: Nick Valentin MD on 11/19/2024 17:01:05
--- OUTSIDE RECORDS SUMMARY | 2024-11-19 09:18 | XMS_ITS | Encounter Summary ---
Author Organization [facility] Address [address] [place] [id number] Phone Care Team Providers Care Commercial Installer Name Role Phone Provider, Mabel PARISI Primary Care Provider [phone] Encounter Details Date Type Department Care Team (Late st Contact Info) Description 03/21/2017 Documentation [facility] [place] [facility] [address] [place] [address] Family Medicine, Physician [address] [place] [address] Social History Tobacco Use Types Packs/Day Years Used Date Smoking Tobacco: Never Comments:Never smoker Comments Unknown Sex and Gender Information Value Date Recorded Sex Assigned at Not on file Legal Sex Female 4:55 PM EDT Gender Identity Not on file Sexual Orientation Not on file documented as of this encounter Plan of Treatment Not on file documented as of this encounter Visit Diagnoses Not on filedocumented in this encounter Care Teams Commercial Installer Relationship Specialty Start Date End Date Provider, MD Mabel [address] [place] [address] PCP - General Pediatrics 02/19/22 11/23/22 documented as of this encounter
--- OUTSIDE RECORDS SUMMARY | 2024-11-19 09:18 | XMS_ITS | Clinical Summary ---
Author Organization [facility] Address [address] [place] [id number] Phone Care Team Providers Care Repair Armature Winder Name Role Phone Unavailable Primary Care Provider Unavailabl e Allergies Active Allergy Reactions Criticality Noted Date Comments Penicillin V 12/13/2018 Medications No known medications Active Problems Problem Noted Date Diagnosed Date Chronic bilateral low back pain without sciatica 12/13/2018 Immunizations Immunization Administration Dates Next Due DTaP, Unspecified 03/28/2000,01/29/2000,12/01/19 00 HPV 09/10/2011 HPV Vaccine 9 Valent 06/11/2016 HPV, Quadrivalent 04/19/2014 Hep A, ped/adol 04/19/2014 Hep A, pediatric, unspecifie d formulation 09/10/2011 Hep B, ped/adol 09/10/2011, 0,01/29/2000,11/30 Hib (HbOC) 10/04/2001, 0,01/29/2000,11/30 Influenza, injectable, quadrivalent 06/11/2016 Influenza, injectable, quadr ivalent, preservative free 04/19/2014 MMR 09/07/2004,2000 Meningococcal B Trumenba 06/26/2019,12/13/2018 Meningococcal Conj (Menactra) MCV4P 12/13/2018 Meningococcal Conjugate 09/10/2011 Polio 09/07/2004, 0,01/29/2000,11/30 Tdap 09/10/2011 Varicella 04/24/2012,2000 Family History Relation Name Status Comments Brother Alive Brother: Alive and well Mother Mother: Migrain es Sister 1 Alive Sister: Alive a nd well, Alive and well Sister 2 Alive Sister: Alive a nd well, Alive and well Social History Tobacco Use Types Packs/Day Years Used Date Smoking Tobacco: Never Tobacco Cessation:Counseling Given: Yes Comments:Never smoker Alcohol Use Standard Drinks/Week Comments Never 0 (1 standard drink = 0.6 oz pur e alcohol) Hunger/Food Answer Date Recorded In the last 12 months, did y ou or your family ever eat less than you felt you should because there wasn't enough money for food? No 12/13/2018 Stable Housing Answer Date Recorded Are you worried that in the next 2 months you may not have stable housing? No 12/13/2018 Transportation Concerns Answer Date Rec orded In the last 12 months, have you or your family ever had to go without healthcare because you didn't have a way to get there? No 12/13/2018 Hazards in Home Answer Date Recorded Think about the place you li ve. Do you have problems with any of the following? Pests (mice or roaches), mold, no/not working smoke detectors, water leaks, no window guards. No 2018 Financing Utilities Answer Date Recorde d In the last 12 months, has t he electric, gas, oil, or water company threatened to shut off your services in your home? No 12/13/2018 Safety at Home Answer Date Recorded Are you or your family worried about feeling saf e in your home? No 12/13/2018 Outside Support Answer Date Recorded Do you feel that you need mo re support from other people or programs to help you care for yourself or your family? No 12/13/2018 Understanding Health Concerns Answer Da te Recorded Do you need help understandi ng your or your child's healthcare needs (diagnosis, medications, plan, etc.)? No 12/13/2018 Financing Health Concerns Answer Date R ecorded In the last 12 months, was t here a time when your child needed to see a doctor or get medications or supplies but could not because of cost? No 12/13/2018 Missing School or Work Answer Date Boubacar rded Did you or your child miss s chool or work because of a health problem that could have been avoided? No 12/13/2018 Comments Unknown Sex and Gender Information Value Date Recorded Sex Assigned at Not on file Legal Sex Female 4:55 PM EDT Gender Identity Not on file Sexual Orientation Not on file Last Filed Vital Signs Vital Sign Reading Time Taken Comments Blood Pressure 120/75 12/29/2018 9:35 AM EDT Pulse 102 12/29/2018 9:35 AM EDT Temperature 36.7 ??C (98.1 ??F) 12/29/2018 9:35 AM ED T Respiratory Rate - - Oxygen Saturation - - Inhaled Oxygen Concentration - - Weight 68 kg (150 lb) 12/29/2018 9:35 AM EDT Height 159.4 cm (5' 2.75 ) 12/13/2018 10:03 AM E DT Body Mass Index 26.78 12/13/2018 10:03 AM EDT Plan of Treatment Health Maintenance Due Date Last Done Comments Influenza Vaccines (#1) 2024 06/11/2016, 04/19 COVID-19 Vaccine ( season) 2024 DTaP,Tdap,and Td Vaccines (6 - Td or Tdap) 08/12/2030 08/12/2020, 09/10/2011, 03/28/2000, Additional history exists HIB Vaccines Completed 10/04/2001, 03/09, 01/29/2000, Additional history exists IPV Vaccines Completed 09/07/2004, 03/09, 01/29/2000, Additional history exists Hepatitis B Vaccines Completed 09/10/2011, 03/31/2000, 01/29/2000, Additional history exists Varicella Vaccines Completed 04/24/2012, 2000 Hepatitis A Vaccines Completed 04/19/2014, 09/10/19 12 HPV Vaccines Completed 06/11/2016, 04/08, 09/10/2011 Meningococcal Vaccine Aged Out 12/13/2018, 012 No longer eligible based on patient's age to complete this topic Men B Vaccine Completed 06/26/2019, 12/13/2018 MMR Vaccines Completed 08/13/2020, 08/10, 2000 Pneumococcal Vaccine Aged Out No long er eligible based on patient's age to complete this topic Procedures * Due to [place] state law, this organization might not be sharing sensitive test results. Procedure Name Priority Date/Time Associated Diagnosis Comments CHLAMYDIA AND GONORRHEA, AMPLIFIED Routine 12/13/2018 10:58 AM EDT Screening examination for bacterial and spirochetal disease from Last 3 Months or Most Recently Relevant to Health Maintenance Results * Due to [place] state law, this organization might not be sharing sensitive test results. * Chlamydia and Gonorrhea, Amplified (12/13/2018 10:58 AM EDT) Chlamydia Trachomatis, DNA Probe NEGATIVE (NEG) [facility] Comment: No Chlamydia Trachomatis RNA detected in this patient's sample ? (REFERENCE RANGE/NORMAL VALUE: NOT DETECTED) ? Note: This test uses frame feeder- mediated amplification method to detect rRNA from C. Trachomatis URINE GC AMP PROBE NEGATIVE (NEG) [facility] Comment: No Neisseria Gonorrhoeae RNA detected in this patient's sample ? (REFERENCE RANGE/NORMAL VALUE: NOT DETECTED) ? NOTE: This test uses frame feeder-mediated amplification method to detect rRNA from N.Gonorrhoeae. A negative result does not preclude infection. In the case of a negative urine result, testing of an endocervical(female) or urethral (male) specimen is recommended if there is high clinical suspicion of infection. Due to very high sensitivity of Nucleic Acid Amplification Test, false positive results may occur. Therefore, specimen handling is extremely important. In patients in whom the disease is unlikely, additional sample for testing should be considered after an initial positive result. The performance characteristics of this test have not been evaluated in children. The Aptima Combo2 assay is not intended for the evaluation of suspected sexual abuse or for other medico-legal indications. The ordering provider should assess if the patient had consensual sex without risk of sexual abuse. Consult the [facility] if needed. Contact phone number . Therapeutic failure or success cannot be determined with the Aptima Combo2 assay since nucleic acid may persist following appropriate antimicrobial therapy. The Centers for Disease Control and Prevention (CDC) recommends confirmatory retesting using culture or a different nucleic acid amplification test when positive results occur, if indicated. Testing performed or reported by [facility], a Service of [facility], [address]elsa [address], [place] [address] Urine 12/13/2018 10:5 8 AM EDT 12/13/2018 10:28 PM EDT Jane Gómez NP LAB MICROBIOLOGY - GENERAL ORDER YOLANDA Final Result [facility] from Last 3 Months or Most Recently Relevant to Health Maintenance
--- OUTSIDE RECORDS SUMMARY | 2024-11-19 09:18 | XMS_ITS | Encounter Summary ---
Author Organization [facility] Address [address] [place] [phone] Phone Care Team Providers Care Principal Architectural Firm Name Role Phone Provider, Mabel PARISI Primary Care Provider [phone] Encounter Details Date Type Department Care Team (Late st Contact Info) Description 03/24/2017 Conversion Encounter [facility] - [address] [id number] Social History Tobacco Use Types Packs/Day Years [...] on filedocumented in this encounter Care Teams Principal Architectural Firm Relationship Specialty Start Date End Date Provider, MD Mabel [address] [place] [phone] PCP - General Pediatrics 02/19/22 11/23/22 documented as of this encounter
--- OUTSIDE RECORDS SUMMARY | 2024-11-19 09:18 | XMS_ITS | Clinical Summary ---
[facility] [address] [place] [address] Care Team Providers Care Channel Installer Name Role Phone Unavailable Primary Care Provider Unavailabl e Medical History Medical History Date Comments Generalized headaches 2016 DX:General ized headaches Asthma DX:Asthma Scoliosis DX:Scoliosis Social History Tobacco Use Types Packs/Day Years Used Date Smoking Tobacco: Never Smokeless Tobacco: Never Alcohol Use Standard Drinks/Week Comments No 0 (1 standard drink = 0.6 oz pur e alcohol) Comments Unknown Sex and Gender Information Value Date Recorded Sex Assigned at Not on file Legal Sex Female 12:53 AM EST Gender Identity Not on file Sexual Orientation Not on file Obstetrics History Plan of Treatment Health Maintenance Due Date Last Done Comments HPV Vaccines (1 - 3-dose series) 2014 DTaP,Tdap,and Td Vaccines (1 - Tdap) 2018 Hepatitis B Vaccines (1 of 3 - 19+ 3-dose series) 2018 Cervical Cancer Screening: P ap Smear 2020 COVID-19 Vaccine (2023-2 5 season) 2024 Influenza Vaccine (Season Ended) 2025 HIB Vaccines Aged Out No longer eligi ble based on patient's age to complete this topic Hepatitis A Vaccines Aged Out No long er eligible based on patient's age to complete this topic IPV Vaccines Aged Out No longer eligi ble based on patient's age to complete this topic MMR Vaccines Aged Out No longer eligi ble based on patient's age to complete this topic Meningococcal ACWY Vaccine Aged Out N o longer eligible based on patient's age to complete this topic Meningococcal B Vaccine Aged Out No l onger eligible based on patient's age to complete this topic Pneumococcal Vaccine: Pediat rics (0 to 5 Years) and At-Risk Patients (6 to 64 Years) Aged Out No longer eligible b ased on patient's age to complete this topic RSV Immunization Patients Un elly 20 months Aged Out No longer eligible b ased on patient's age to complete this topic Varicella Vaccines Aged Out No longer eligible based on patient's age to complete this topic
--- OUTSIDE RECORDS SUMMARY | 2024-11-19 09:18 | XMS_ITS | Clinical Summary ---
Author Organization [facility] Address [address] [place] [address] Care Team Providers Care Production Generalist Name Role Phone Unavailable Primary Care Provider Unavailabl e Allergies Active Allergy Reactions Criticality Noted Date Comments Penicillins Swelling,Rash Low 03/20/2020 Medications Medication Sig Dispensed Refills Start Date End Date Status MV-Min-Fe Fum-FA-DHA (VITAFOL-OB+DHA) 65-1 & 250 MG MISCIndications:20 weeks gestation of Take 1 tablet by mouth daily. 30 each 6 03/21/2020 Active Active Problems Problem Noted Date Diagnosed Date Abdominal pain affecting 04/20/2020 Social History Tobacco Use Types Packs/Day Years Used Date Smoking Tobacco: Never Smokeless Tobacco: Never Alcohol Use Standard Drinks/Week Comments No 0 (1 standard drink = 0.6 oz pur e alcohol) Sex and Gender Information Value Date Recorded Sex Assigned at Female 04/20/2020 9:29 PM EDT Gender Identity Female 04/20/2020 9:29 PM EDT Sexual Orientation Straight 04/20/2020 9: 29 PM EDT Last Filed Vital Signs Vital Sign Reading Time Taken Comments Blood Pressure 112/64 05/10/2020 5:56 PM EDT Pulse 106 05/10/2020 5:56 PM EDT Temperature 36.6 ??C (97.9 ??F) 05/10/2020 4:56 PM ED T Respiratory Rate 18 05/10/2020 4:56 PM EDT Oxygen Saturation 98% 05/10/2020 4:56 PM EDT Inhaled Oxygen Concentration - - Weight 82.6 kg (182 lb) 05/10/2020 5:00 PM EDT Height 154.9 cm (5' 1 ) 05/10/2020 5:00 PM EDT Body Mass Index 34.39 05/10/2020 5:00 PM EDT Plan of Treatment Health Maintenance Due Date Last Done Comments Hepatitis B Vaccines (1 of 3 - 3-dose series) 1999 Hepatitis C Screening 1999 COVID-19 Vaccine (#1) 03/29/2000 Depression Screening 2011 Preventative Health Evaluation 2017 DTap / Tdap / Td (1 - Tdap) 2018 Cervical Cancer Screening (Pap Smear) 2020 Gonorrhea and Chlamydia Screening 01/21/2021 01/22/2020, 01/22/2020 Influenza Vaccine (#1) 2024 Pneumococcal Vaccine Aged Out No long er eligible based on patient's age to complete this topic RSV Ped < 20 months Aged Out No longe r eligible based on patient's age to complete this topic Advance Directives For more information, please contact: [phone] Documents on File Type Date Recorded 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
[2024-11-19 09:26] LABS: Hematocrit 39.3 % (37.0-47.0); Hemoglobin 12.5 g/dl (12.0-16.0); Mean Corpuscular HGB Conc 31.8 g/dl (31.0-35.0); Mean Corpuscular Hemoglobin 26.9 pg (27.0-33.0); Mean Corpuscular Volume 84.5 fL (80.0-98.0); Mean Platelet Volume 9.4 fL (9.4-12.3); Platelet Count 403 X10*3/uL (160-400); Red Blood Count 4.65 X10*6/uL (4.20-5.50); Red Cell Distribution Width 14.3 % (11.0-16.0); White Blood Count 8.1 X10*3/uL (4.8-10.8)
[2024-11-19 09:54] LABS: Alanine Aminotransferase 28 U/L (0-31); Albumin Level 4.2 g/dL (3.5-5.0); Alkaline Phosphatase 138 U/L (39-117); Anion Gap 10 (12-20); Aspartate Amino Transferase 25 U/L (5-31); Bilirubin Total 0.4 mg/dL (0.0-1.0); Blood Urea Nitrogen 14 mg/dL (9-16); Calcium 9.3 mg/dL (8.4-10.2); Carbon Dioxide 28 mmol/L (22-29); Chloride 104 mmol/L (96-108); Estimated Glomerular Filt Rate > 60; Glucose Fasting 95 mg/dL (60-99); Sodium 138 mmol/L (135-145); Total Protein 7.4 g/dL (6.5-8.0)
== END 2024-11-19 08:42 | disposition home or self-care (01) ==
LOC: HO.LAB 08:41
PROVIDERS: PCP Physician Assistant; Visit Provider Physician Assistant
DX: Z13.1 Encounter for screening for diabetes mellitus (principal); M41.23 Other idiopathic scoliosis, cervicothoracic region
CPT/HCPCS: 36415; 72040; 72072; 80053; 85027

== ENCOUNTER → 2024-11-19 08:53 | Outpatient (BNV) | payer OTHER, SELFPAY | PROVIDERS: PCP Physician Assistant; Visit Provider Radiology Diagnostic Radiology | DX: M41.23 Other idiopathic scoliosis, cervicothoracic region (principal) | CPT/HCPCS: 72040; 72072 ==